=== PATIENT | female | born 1965 | race Caucasian/White ===

== ENCOUNTER 2016-10-22 15:40 | Emergency (ER) | payer OTHER, MEDICAID ==
[~2016-10-22] VITALS: Ht 157.5 cm; Wt 92.1 kg
[~2016-10-22 15:40] MED LIST: /ESCI20TA PO; DOXY100T OR; FLUC10TA OR; GLUC500T PO; NEXI20CA PO; PERC5TAB8 OR; SIMV20TA2 PO
[2016-10-22 15:41] VITALS: BP 161/80
[2016-10-22] MEDS ORDERED: ASPI81TA85 PO (15:50)
== END 2016-10-22 16:35 | disposition home or self-care (01) ==
LOC: M ED 16:28
DX: S46.912A Strain of unspecified muscle, fascia and tendon at shoulder and upper arm level, left arm, initial encounter (principal); V49.40XA Driver injured in collision with unspecified motor vehicles in traffic accident, initial encounter; Y92.410 Unspecified street and highway as the place of occurrence of the external cause; Y93.89 Activity, other specified; Y99.9 Unspecified external cause status

== ENCOUNTER → 2016-12-21 | Outpatient (CLI) | payer OTHER ==
[~2016-12-21] MED LIST changes: +ASPI81TA85 PO
--- NOTE | 2016-12-21 14:18 | REP ---
Clinical: Right lower quadrant pain . Technique: Transabdominal pelvic ultrasound followed by transvaginal examination for better evaluation of the endometrium and adnexa with color Doppler evaluation of the ovaries. Findings: Bladder is unremarkable and measures 10.8 x 6.4 x 8.6 cm . The patient is status post hysterectomy. No pelvic fluid or mass lesion identified. Bilateral ovaries are normal in appearance and vascularity without evidence for torsion. Right ovary measures 4.7 x 3.4 x 3.7 cm with 4 cm cyst and 1.5 cm paraovarian cyst; R I = 0.78 . Left ovary measures 2.5 x 1.6 x 1.7 cm; venous flow is detected. Impression: 1. Status post hysterectomy without fluid or pelvic mass. 2. 4 cm right ovarian cyst may be related to patient's symptoms. Consider follow-up examination in 4-6 weeks to evaluate for resolution.
== END ==
LOC: M WHC 13:13
PROVIDERS: ATTEND Nurse Practitioner Family
DX: R10.31 Right lower quadrant pain (principal); N83.291 Other ovarian cyst, right side

== ENCOUNTER → 2017-01-20 | Outpatient (CLI) | payer OTHER ==
--- NOTE | 2017-01-20 15:25 | REP ---
NON-OB PELVIC ULTRASOUND: HISTORY: Ovarian cyst. COMPARISON: 12/21/2016. The patient is status post hysterectomy. The right ovary measures 7.1 x 3.5 x 3.8 cm. An ovarian cyst is present. The cyst measures 3.9 x 2.7 x 3.2 cm. A right paraovarian cyst is present. This measures 1.2 x 0.7 x 1.0 cm. The left ovary measures 3 x 2.2 x 2.1 cm. There is no fluid in the cul-de-sac. IMPRESSION: 1. Right ovarian cyst unchanged in size compared to the previous study. 2. Right paraovarian cyst slightly decreased in size compared to the previous study. 3. The patient is status post hysterectomy. Signed by Jan Cherry MD 01/20/2017 03:29 P
== END ==
LOC: M RAD 13:41
PROVIDERS: ATTEND Obstetrics & Gynecology
DX: N83.201 Unspecified ovarian cyst, right side (principal)

== ENCOUNTER → 2017-03-03 | Day surgery (SDC) | payer OTHER ==
--- NOTE | 2017-02-23 11:38 | CR ---
DATE OF CONSULTATION: 02/22/2017 REQUESTING PHYSICIAN: Dr. Cai for bilateral salpingo-oophorectomy on 03/03/[address] [facility]. Dear Dr. Cai, Thank you for asking me to see Ms. Galina Simms in consultation prior to her bilateral salpingo-oophorectomy. As you know, Ms. Simms is a 51-year-old female with a past medical history of partial hysterectomy, type 2 diabetes, hyperlipidemia, presenting for preop optimization. Ms. Simms reports that she initially presented with sharp pain in her right side and ultimately found to have ovarian cyst. Pain has been so uncomfortable that it has been difficult for her to be active. She complains of associated nausea and anorexia. She was prescribed Zofran recently but finds Dramamine works better. She has omeprazole but takes it only sporadically. Patient has history of migraines, they are rare. She uses Imitrex for this. Patient has history of hypertension. She is on lisinopril. Denies any chest pain, palpitations, syncope or presyncope. The patient does have tramadol for pain. She is taking this rarely, at most several times a week. The patient is active but not exercising. She denies chest pain, palpitations, syncope, presyncope. The patient reports she has a small right brain aneurysm. She follows with neurology. This was found incidentally during evaluation for migraines. 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 The patient denies any new neurologic symptoms. The patient does suffer from depression, anxiety. She is on Lexapro and feels she is stable. She is compliant with medicines. PAST MEDICAL HISTORY: 1. 01/11/2005 partial hysterectomy and appendectomy. 2. Lysis of adhesions. 3. Hirsutism. 4. 1, para 1. 5. Hyperlipidemia. 6. Depression. 7. Diabetes type 2 in 2009. 8. Gastroesophageal reflux disease. 9. Fractured wrist 08/20/2009. 10. Vitamin D deficiency. 11. Ovarian cyst per ultrasound 01/20/2017. Right ovarian cyst is 1.2 x 0.7 x 1 cm, left ovarian cyst is 3 x 2.2 x 2.1 cm. 12. Right sided ICA 1 mm aneurysm July 2015 angiogram. MEDICATIONS: The patient's medications she is on: - baby aspirin daily - atorvastatin 80 mg daily - Dramamine as needed for nausea - Drisdol 50,000 units weekly - Imitrex as needed for migraine - Lexapro 20 mg daily - Lisinopril 5 mg daily - multivitamin daily - omeprazole 40 mg as needed - tramadol 50 mg as needed for pain - vitamin D 1000 International Units daily ALLERGIES: BACTRIM causes GI upset, DIFLUCAN causes nausea. FAMILY HISTORY: Mother in her 70s with hypertension, lung cancer, breast cancer, colon cancer. Dad in his 70s from heart disease. Two sisters with diabetes, asthma, strokes. SOCIAL HISTORY: . 25-year-old son. Never smoked. Denies alcohol. PHYSICAL EXAMINATION: Obese female in no acute distress. VITAL SIGNS: Weight 208 with a Body Mass Index (BMI) of 37, oxygen saturation is 96%, blood pressure 136/84 with a heart rate of 76. HEENT: Head is normocephalic. Neck is supple. Pupils equal, reactive to light. Extraocular movements intact. Conjunctivae not injected. Sclerae anicteric. Vision grossly normal. Tympanic membranes, external auditory canals are normal. Tongue is midline. Posterior pharynx without inflammation. Neck: Supple. No thyromegaly, jugular venous distention (JVD), carotid bruits. She does have hirsutism on her chin and neck. RESPIRATORY: Clear to auscultation, resonant to percussion. CARDIOVASCULAR: Soft systolic murmur. ABDOMEN: Soft, nontender, obese. No hepatosplenomegaly. EXTREMITIES: No cyanosis, clubbing or edema. DERMATOLOGIC: No rashes or bruises. NEUROLOGIC: Alert and oriented. Cranial nerves II-XII are intact. LABORATORY DATA: 02/22/2017: Normal CBC. A1/c was 5.9. Med profile is normal. Magnesium normal. TSH is normal. EKG on 02/22/2017: Normal sinus rhythm, rate of 77, axis of 3 degrees, normal TN, QRS, QTC interval. Only subtle nonspecific ST-T wave changes with no significant change from previous EKG in 2012. IMPRESSION: Ms. Galina Simms is a 51-year-old female with cardiovascular risk factors positive for hypertension, hyperlipidemia, type 2 diabetes, has no signs or symptoms indicative of cardiovascular ischemia and is felt to be at low risk for cardiovascular complications, which can be further minimized by the followin. Diabetes type 2. With her anorexia and nausea, I will discontinue metformin at this point and bring her back in 1 month to reconsider reinitiation and treatment. 2. Hyperlipidemia. She will take atorvastatin as usual the evening prior to surgery. Aspirin will be on hold 1 week prior to surgery. 3. Gastroesophageal reflux disease. I have recommended daily proton pump inhibitor until surgery. Hopefully, nausea and anorexia will improve, and we can wean her back off. 4. Migraines, rare. Continue as needed Imitrex. 5. Vitamin D deficiency. Hold the morning of surgery. 6. Depression. Continue Lexapro, including morning of surgery. 7. Hypertension. Blood pressure is adequately controlled. Hold lisinopril the morning of surgery. 8. Cerebral aneurysm. Continue to monitor with neurology and vascular surgeon. 9. Soft systolic murmur, no need for further evaluation or treatment Thank you very much for this consultation. Please call with questions or concerns.
[~2017-03-03] VITALS: Ht 157.5 cm; Wt 93.0 kg
[~2017-03-03] MED LIST changes: +ATOR80TA59 PO; +BUPIVACAINE HCL 0.25% 30 ML VIAL As Ordered ONE; +COLA100C5 PO; +ESTR3TA PO; +GLYCOPYRROLATE INJ 0.2 MG/ML 2 ML VIAL As Ordered ONE; +HYDROmorphone HCL 2 MG/ML 1ML VIAL (J1170) As Ordered ONE; +IBUP-1022 PO; +KETOROLAC 60 MG/2 ML VIAL (J1885) As Ordered ONE; +LEXA1TAB2 PO; +LIDOCAINE 1% MDV 20ML VIAL SC ONE; +LIDOCAINE 2% INJ 100 MG/5 ML SDV (FOR ANES.) As Ordered ONE; +LISI-542 PO; +LR 1,000 ML IV ONE; +LR 1,000 ML IV SCH; +METHYLENE BLUE 0.5% (5MG/ML) 10 ML AMP (PROVAYBLUE)(Q9968 PER 1MG) As Ordered ONE; +MIDAZOLAM INJ 2 MG/2 ML VIAL (J2250) As Ordered ONE; +NEOSTIGMINE 1MG/ML 5 ML SYRINGE (J2710) As Ordered ONE; +NORCOTAB PO; +ONDANSETRON 4MG/2ML VIAL (J2405) As Ordered ONE; +ONDANSETRON 4MG/2ML VIAL (J2405) IV PRN; +OXYC1TAB23 PO; +PERCOCET 5MG/325MG TAB PO PRN; +PROPOFOL 200 MG/20 ML VIAL As Ordered ONE; +ROCURONIUM BROMIDE 50 MG/5 ML VIAL/SYRINGE As Ordered ONE; +SUMA50TA2 PO; +TRAM50TA2 PO; +VITA200016 PO; +WOMECAP2 PO; +ZOFR4TAB3 PO; +dexameTHASONE 4 MG/ML 1ML VIAL (J1100) As Ordered ONE; +ePHEDrine SULFATE 25 MG/5 ML(5MG/ML) SYRINGE As Ordered ONE; +fentaNYL 100 MCG/2 ML INJECTION (J3010) IV PRN; +fentaNYL 250 MCG/5 ML INJECTION (J3010) As Ordered ONE
[2017-03-03 07:28] LABS: MEAN CORPUSCULAR HEMOGLOBIN 30.6 pg (27.0-33.0); MEAN CORPUSCULAR HGB CONC 33.9 g/dl (32.0-36.5); MEAN CORPUSCULAR VOLUME 90.1 fl (80.0-96.0); RED CELL DISTRIBUTION WIDTH 13.6 % (11.5-14.5)
[2017-03-03 12:25] VITALS: BP 142/81
--- NOTE | 2017-03-05 07:42 | RO ---
DATE OF PROCEDURE: 03/03/2017 PREOPERATIVE DIAGNOSIS: 1. Chronic pelvic pain. POSTOPERATIVE DIAGNOSES: 1. Chronic pelvic pain. 2. Pelvic adhesive disease. PROCEDURES PERFORMED: 1. Laparoscopic bilateral salpingo-oophorectomy. 2. Laparoscopic adhesiolysis. 3. Cystoscopy. SURGEON: Waylon Cai DO WAITER/WAITRESS CABIN CLASS: Jan Sanchez MD ANESTHESIA: General endotracheal. SPECIMENS TO PATHOLOGY: The right and left ovaries with fallopian tubes. ESTIMATED BLOOD LOSS: 10 mL. FLUIDS REPLACED: 1500 mL lactated Ringer's. DRAINS: 500 mL of urine output through the Alejandro catheter. COMPLICATIONS: None. PREOPERATIVE ANTIBIOTICS: None indicated. FINDINGS: 1. Severe pelvic adhesive disease. Omental adhesions to the anterior abdominal wall. Normal ovaries bilaterally. Normal fallopian tubes bilaterally with the exception of the ovaries and fallopian tubes both being densely adherent to the pelvic sidewall and to the large intestine. CYSTOSCOPY FINDINGS: No bladder injury. Evidence of bilateral ureteral orifice jets after IV infusion of methylene blue. INDICATION: Patient is a 51-year-old 1, para 1 with a history of longstanding chronic pelvic pain. She is status post hysterectomy and her pain persists despite her hysterectomy. She was adamant about proceeding with a bilateral salpingo-oophorectomy for the hopeful treatment of her chronic pelvic pain. She was counseled and consented on the risks, benefits, indications, and alternatives to the procedure. I informed the patient that this may not cure her chronic pelvic pain, but she still desired to proceed with this surgical plan. The implications of bilateral salpingo-oophorectomy/iatrogenic menopause were reviewed with the patient. DESCRIPTION OF PROCEDURE: After the patient was counseled and consented on the risks, benefits, indications, and alternatives to the procedure, informed consent was obtained. She was taken to the operating room with an IV running and placed on the operating table in the dorsal supine position. General anesthesia was administered and the airway was secured without any difficulty. She was then placed in a low lithotomy position. She was prepared and draped in the normal sterile fashion. A time out was performed per protocol. A Alejandro catheter was placed under sterile conditions. A sponge stick was placed into the vagina for potential manipulation of the lower pelvic organs. A glove switch was performed and attention was turned to the abdomen. 0.25% Marcaine was injected into the umbilicus. An 11 mm umbilical incision was made with the 11 blade. Through this incision a Veress needle was placed into the intraperitoneal cavity. Intraperitoneal placement was confirmed with ease of flow of normal saline, negative return on aspiration, and a positive drop test. Opening pressure was 7 mmHg. The abdomen was insufflated with 2 liters of gas. The Veress needle was removed. A size 11 XCEL laparoscopic trocar was placed under direct visualization into the intraperitoneal cavity. No incidental injury was noted. The patient was then placed in steep Trendelenburg, and inspection of the abdomen and pelvis was performed with the findings noted above. Two additional laparoscopic port sites were placed in the lower abdomen via 5 mm skin incisions on both the right and left side. This was done under direct laparoscopic visualization without any difficulty. Given the level of the adhesive disease, a decision was first made to perform adhesiolysis. This was done with the monopolar Endo Samson, blunt dissection and the use of the LigaSure device. The pelvic sidewall adhesions and bowel adhesions to the right and left adnexa and the omental adhesions to the anterior abdominal wall were all reduced without any difficulty or incident injury. Once the right adnexa was freed from adhesive disease, the right fallopian tube and ovary were elevated. The right IP ligament was easily delineated and noted to be well way from the right ureter. In sequential fashion, the right IP ligament was clamped, coagulated and transected with a LigaSure device until it was amputated. These specimens were then placed in the anterior cul-de-sac. Attention was turned to the left adnexa and after extensive adhesiolysis the left ovary and fallopian tube were noted to be freed and clear of both the large intestine and the left ureter. The left fallopian tube and ovary were grasped and elevated, the left IP ligament was easily delineated and in sequential fashion the left IP ligament was clamped, coagulated and transected with the LigaSure device. This specimen was also placed into the anterior cul-de-sac. The specimens were placed in an EndoCatch bag. Two separate EndoCatch bags were used. The EndoCatch bag removals were performed in typical fashion without any difficulty. Each specimen was removed in its entirety. They were sent separately as right and left fallopian tube with ovary. The surgical sites were noted to be hemostatic after irrigation. The gas was released from the abdomen. The laparoscopic cannulas were removed in typical fashion. After removal of laparoscopic cannulas, the fascia at the umbilical incision was closed with #0 Vicryl with a figure-of-8 stitch. The skin incisions were closed with #4-0 Monocryl in subcuticular fashion and reinforced with Dermabond. The Alejandro catheter was removed. A 30 degree cystoscope was placed into the bladder. No bladder injury was noted. Bilateral UO efflux was noted after IV infusion of methylene blue, thus indicating no evidence of urological injury. Sponge, lap, needle and instrument counts were correct. The patient was transferred to the postanesthesia care unit (PACU) in good and stable condition. She tolerated the procedure very well. DEBRA
== END | disposition home or self-care (01) ==
LOC: M SDC 06:40
PROVIDERS: ATTEND Obstetrics & Gynecology
DX: R10.2 Pelvic and perineal pain (principal); N73.6 Female pelvic peritoneal adhesions (postinfective); E78.4 Other hyperlipidemia; E11.9 Type 2 diabetes mellitus without complications; G43.909 Migraine, unspecified, not intractable, without status migrainosus; K21.9 Gastro-esophageal reflux disease without esophagitis; I10 Essential (primary) hypertension; F32.9 Major depressive disorder, single episode, unspecified; F41.9 Anxiety disorder, unspecified; E55.9 Vitamin D deficiency, unspecified; Z79.82 Long term (current) use of aspirin; Z79.899 Other long term (current) drug therapy; Z88.2 Allergy status to sulfonamides; I67.1 Cerebral aneurysm, nonruptured

== ENCOUNTER → 2017-03-22 | Outpatient (CLI) | payer OTHER ==
[~2017-03-22] MED LIST changes: -BUPIVACAINE HCL 0.25% 30 ML VIAL As Ordered ONE; -GLYCOPYRROLATE INJ 0.2 MG/ML 2 ML VIAL As Ordered ONE; -HYDROmorphone HCL 2 MG/ML 1ML VIAL (J1170) As Ordered ONE; -KETOROLAC 60 MG/2 ML VIAL (J1885) As Ordered ONE; -LIDOCAINE 1% MDV 20ML VIAL SC ONE; -LIDOCAINE 2% INJ 100 MG/5 ML SDV (FOR ANES.) As Ordered ONE; -LR 1,000 ML IV ONE; -LR 1,000 ML IV SCH; -METHYLENE BLUE 0.5% (5MG/ML) 10 ML AMP (PROVAYBLUE)(Q9968 PER 1MG) As Ordered ONE; -MIDAZOLAM INJ 2 MG/2 ML VIAL (J2250) As Ordered ONE; -NEOSTIGMINE 1MG/ML 5 ML SYRINGE (J2710) As Ordered ONE; -ONDANSETRON 4MG/2ML VIAL (J2405) As Ordered ONE; -ONDANSETRON 4MG/2ML VIAL (J2405) IV PRN; -PERCOCET 5MG/325MG TAB PO PRN; -PROPOFOL 200 MG/20 ML VIAL As Ordered ONE; -ROCURONIUM BROMIDE 50 MG/5 ML VIAL/SYRINGE As Ordered ONE; -dexameTHASONE 4 MG/ML 1ML VIAL (J1100) As Ordered ONE; -ePHEDrine SULFATE 25 MG/5 ML(5MG/ML) SYRINGE As Ordered ONE; -fentaNYL 100 MCG/2 ML INJECTION (J3010) IV PRN; -fentaNYL 250 MCG/5 ML INJECTION (J3010) As Ordered ONE
--- NOTE | 2017-03-22 13:16 | REP ---
LEFT CALCANEUS: Two views of left calcaneus performed. There is no fracture or dislocation. There is mild posterior and inferior calcaneal spurring. IMPRESSION: Mild calcaneal spurring. Signed by Triston Hu MD 03/22/2017 05:11 P
== END ==
LOC: M RAD 12:43
PROVIDERS: ATTEND Physician Assistant Medical
DX: M77.32 Calcaneal spur, left foot (principal)

== ENCOUNTER 2017-04-14 12:53 | Emergency (ER) | payer OTHER ==
[~2017-04-14] VITALS: Ht 157.5 cm; Wt 93.2 kg
[~2017-04-14 12:53] MED LIST changes: -ATOR80TA59 PO; -ESTR3TA PO; -LEXA1TAB2 PO; -LISI-542 PO; -NORCOTAB PO
[2017-04-14] MEDS ORDERED: ESTR3TA PO (13:08)
[2017-04-14] MEDS ORDERED: LEXA1TAB2 PO (13:08)
[2017-04-14] MEDS ORDERED: LISI-542 PO (13:08)
[2017-04-14] MEDS ORDERED: ATOR80TA59 PO (13:08)
--- NOTE | 2017-04-14 15:00 | REP ---
Clinical: Trauma. Technique: AP, lateral, bilateral oblique views left hand . Findings: The osseous structures and joint spaces are intact and normal. There is no evidence for acute fracture or dislocation. Surrounding soft tissues are unremarkable. No subcutaneous emphysema or radiodense foreign body. Impression: No acute fracture or dislocation. Signed by Vinny Santoro MD 04/14/2017 02:53 P
[2017-04-14 15:02] VITALS: BP 158/82
[2017-04-14] MEDS ORDERED: NORCOTAB PO (15:23)
[2017-04-14] MEDS ORDERED: NORCO, ANEXSIA 5/325MG TABLET (HYDROcodone/ACETAMINOPHEN) PO ONE (15:30)
== END 2017-04-14 15:35 | disposition home or self-care (01) ==
LOC: M ED 12:53
DX: S60.512A Abrasion of left hand, initial encounter (principal); S60.222A Contusion of left hand, initial encounter; X58.XXXA Exposure to other specified factors, initial encounter; Y92.019 Unspecified place in single-family (private) house as the place of occurrence of the external cause; Y93.89 Activity, other specified; Y99.8 Other external cause status; E11.9 Type 2 diabetes mellitus without complications; F33.9 Major depressive disorder, recurrent, unspecified; Z79.82 Long term (current) use of aspirin; Z79.899 Other long term (current) drug therapy; Z88.8 Allergy status to other drugs, medicaments and biological substances; Z88.2 Allergy status to sulfonamides; Z86.79 Personal history of other diseases of the circulatory system

== ENCOUNTER 2017-05-01 17:44 | Emergency (ER) | payer OTHER ==
[~2017-05-01] VITALS: Ht 157.5 cm; Wt 94.5 kg
[~2017-05-01 17:44] MED LIST changes: +ATOR80TA59 PO; +ESTR3TA PO; +LEXA1TAB2 PO; +LISI-542 PO; +NORCOTAB PO
--- NOTE | 2017-05-01 18:19 | ECGEPIP ---
Stationary ECG Study [facility] - ED Test Date: 2017-05-01 Pat Name: TAN ALEMAN Department: Room: - Gender: F Nursing Informatics Specialist: alysia : 1965 Requested By: Celia Lee Order Number: [id number] Reading MD: Osvaldo Le Measurements Intervals [place] Rate: 81 P: 50 [place]: 177 QRS: -1 QRSD: 90 T: 11 QT: 381 QTc: 444 Interpretive Statements SINUS RHYTHM MINIMAL VOLTAGE CRITERIA FOR LVH, CONSIDER NORMAL VARIANT SIMILAR TO 03/23/15 Electronically Signed On 05-01-2017 18:18:43 EDT by Osvaldo Le
[2017-05-01] MEDS ORDERED: ASPIRIN 81 MG CHEW TABLET PO ONE (20:00)
--- NOTE | 2017-05-01 20:40 | REPUSA ---
CT of the head Clinical history: neuropathy. Comparison: 06/06/2010. Technique: Multiple axial CT images were obtained through the head without administration of contrast . Findings: The ventricles and sulci are symmetric bilaterally. There is no evidence of acute hemorrhag e or infarct. There is no midline shift, mass effect, or extra-axial fluid collection. The osseous st ructures are unremarkable. The visualized paranasal sinuses and mastoid air cells are clear. Impression: Negative study.
[2017-05-01 20:52] LABS: BASO % 0.3 % (0.0-1.0); EOS # 0.2 10^3/uL (0.0-0.50); EOS % 1.7 % (0.0-3.0); IMMATURE GRANULOCYTE % 0.4 % (0-0); LYMPH # 2.4 10^3/uL (1.5-4.5); LYMPH % 24.4 % (24.0-44.0); MEAN CORPUSCULAR HEMOGLOBIN 29.5 pg (27.0-33.0); MEAN CORPUSCULAR VOLUME 89.5 fl (80.0-96.0); MONO # 0.6 10^3/uL (0.0-0.8); MONO % 6.6 % (0.0-5.0); NEUTROPHILS # 6.4 10^3/uL (1.8-7.7); NEUTROPHILS % 66.6 % (36.0-66.0); PLATELET COUNT, AUTOMATED 409 10^3/uL (150-450); RED CELL DISTRIBUTION WIDTH 13.4 % (11.5-14.5); WHITE BLOOD COUNT 9.7 10^3/uL (4.0-10.0)
[2017-05-01 21:01] LABS: ALT/SGPT 25 U/L (12-78); ANION GAP 9 MEQ/L (8-16); AST/SGOT 9 U/L (15-37); BLOOD UREA NITROGEN 22 MG/DL (7-18); CALCIUM LEVEL 8.5 MG/DL (8.5-10.1); CARBON DIOXIDE LEVEL 26 MEQ/L (21-32); CHLORIDE LEVEL 108 MEQ/L (98-107); CREATININE FOR GFR 0.73 MG/DL (0.55-1.02); GLOMERULAR FILTRATION RATE > 60.0 (>58); GLUCOSE, FASTING 89 MG/DL (70-105); POTASSIUM SERUM 3.9 MEQ/L (3.5-5.1); SODIUM LEVEL 143 MEQ/L (136-145)
[2017-05-01 21:02] LABS: ALBUMIN 3.4 GM/DL (3.2-5.2); ALKALINE PHOSPHATASE 84 U/L (45-117); BILIRUBIN,DIRECT < 0.1 MG/DL (0.0-0.2); BILIRUBIN,TOTAL 0.2 MG/DL (0.2-1.0)
[2017-05-01 21:08] LABS: INR 0.9
[2017-05-01 21:09] LABS: TOTAL PROTEIN 6.8 GM/DL (6.4-8.2)
[2017-05-01 21:59] VITALS: BP 147/86
--- NOTE | 2017-05-02 01:03 | REP ---
Clinical: Chest pain . Comparison: 08/10/2014 . Technique: PA and lateral. Findings: The mediastinum and cardiac silhouette are normal. The lung charles are clear and without acute consolidation, effusion, or pneumothorax. The skeletal structures are intact and normal. Impression: 1. No acute cardiopulmonary process. Signed by Vinny Santoro MD 05/02/2017 12:54 A
== END 2017-05-01 22:15 | disposition home or self-care (01) ==
LOC: M ED 17:44
DX: G62.9 Polyneuropathy, unspecified (principal); E11.9 Type 2 diabetes mellitus without complications; Z82.49 Family history of ischemic heart disease and other diseases of the circulatory system; Z79.82 Long term (current) use of aspirin; Z79.899 Other long term (current) drug therapy; Z88.2 Allergy status to sulfonamides; Z88.8 Allergy status to other drugs, medicaments and biological substances

== ENCOUNTER 2017-05-16 15:18 | Emergency (ER) | payer OTHER ==
[~2017-05-16] VITALS: Ht 157.5 cm; Wt 92.3 kg
[2017-05-16] MEDS ORDERED: NS 1,000 ML IV SCH (15:42)
[2017-05-16] MEDS ORDERED: KETOROLAC 30 MG/ML VIAL (J1885) IV ONE (15:45)
[2017-05-16 16:37] LABS: BASO % 0.3 % (0.0-1.0); EOS # 0.2 10^3/uL (0.0-0.50); EOS % 1.7 % (0.0-3.0); IMMATURE GRANULOCYTE % 0.2 % (0-0); LYMPH # 2.2 10^3/uL (1.5-4.5); LYMPH % 23.6 % (24.0-44.0); MEAN CORPUSCULAR HEMOGLOBIN 29.4 pg (27.0-33.0); MEAN CORPUSCULAR HGB CONC 33.5 g/dl (32.0-36.5); MEAN CORPUSCULAR VOLUME 87.8 fl (80.0-96.0); MONO # 0.5 10^3/uL (0.0-0.8); NEUTROPHILS # 6.4 10^3/uL (1.8-7.7); NEUTROPHILS % 69.2 % (36.0-66.0); PLATELET COUNT, AUTOMATED 332 10^3/uL (150-450); RED CELL DISTRIBUTION WIDTH 13.2 % (11.5-14.5); WHITE BLOOD COUNT 9.3 10^3/uL (4.0-10.0)
--- NOTE | 2017-05-16 16:41 | REP ---
Acute abdominal series three views including PA chest and supine upright abdomen: PA chest: Comparisons 05/01/2017. The lung charles are clear. Cardiac size is normal. The [place], mediastinum, and bony thorax are unremarkable. There is no free subdiaphragmatic air. Impression: Negative PA chest. There is no interval change. Abdomen, supine upright views: The bowel gas pattern is normal. There are surgical clips in the pelvis. There are no calcifications of the skeletal structures and soft tissues are otherwise unremarkable. Impression: Normal bowel gas pattern. Signed by Triston Ley MD 05/16/2017 04:33 P
[2017-05-16 17:05] LABS: ALBUMIN 3.7 GM/DL (3.2-5.2); ALBUMIN/GLOBULIN RATIO 1.03 (1.00-1.93); ALKALINE PHOSPHATASE 90 U/L (45-117); ALT/SGPT 30 U/L (12-78); ANION GAP 5 MEQ/L (8-16); AST/SGOT 13 U/L (15-37); BILIRUBIN,DIRECT < 0.1 MG/DL (0.0-0.2); BILIRUBIN,TOTAL 0.2 MG/DL (0.2-1.0); BLOOD UREA NITROGEN 21 MG/DL (7-18); CALCIUM LEVEL 8.9 MG/DL (8.5-10.1); CARBON DIOXIDE LEVEL 31 MEQ/L (21-32); CHLORIDE LEVEL 106 MEQ/L (98-107); CREATININE FOR GFR 0.92 MG/DL (0.55-1.02); GLOMERULAR FILTRATION RATE > 60.0 (>58); GLUCOSE, FASTING 109 MG/DL (70-105); POTASSIUM SERUM 3.5 MEQ/L (3.5-5.1); SODIUM LEVEL 142 MEQ/L (136-145); TOTAL PROTEIN 7.3 GM/DL (6.4-8.2)
[2017-05-16] MEDS ORDERED: GASTROGRAFIN SOLUTION 30ML (Q9963) PO ONE ×2 (17:30→18:00)
[2017-05-16] MEDS ORDERED: ISOVUE-370 76% 100ML VIAL (Q9967) As Ordered ONE (19:06)
--- NOTE | 2017-05-16 19:40 | REPUSA ---
CT of the abdomen and pelvis with contrast Clinical statement: Pain. Technique: Multiple axial CT images were obtained from the base of the lungs through the floor of the pelvis utilizing 5 mm axial slices after administration of oral and nonionic intravenous contrast. C oronal and sagittal reconstructions were also obtained. Comparison: 01/05/2014. Findings: Chest: The visualized lung bases are clear. Abdomen: The spleen, pancreas, kidneys, gallbladder, and adrenal glands are unremarkable. There is di ffuse low attenuation within the hepatic parenchyma. The aorta is within normal limits. There is no e vidence of abdominal lymphadenopathy or ascites. Pelvis: The bowel is unremarkable, with no obstructive or inflammatory changes. The urinary bladder i s within normal limits. The other pelvic structures appear grossly intact. There is no evidence of pe lvic lymphadenopathy or ascites. Bones: There are no suspicious osseous abnormalities seen. Impression: 1. No obstructive or inflammatory bowel changes. 2. Fatty infiltration of the liver.
[2017-05-16 21:14] VITALS: BP 146/86
== END 2017-05-16 21:15 | disposition home or self-care (01) ==
LOC: M ED 15:18
DX: R10.9 Unspecified abdominal pain (principal); E11.9 Type 2 diabetes mellitus without complications; I10 Essential (primary) hypertension; G43.909 Migraine, unspecified, not intractable, without status migrainosus; K21.9 Gastro-esophageal reflux disease without esophagitis; E28.2 Polycystic ovarian syndrome; F32.9 Major depressive disorder, single episode, unspecified; K76.0 Fatty (change of) liver, not elsewhere classified; Z79.82 Long term (current) use of aspirin; Z79.899 Other long term (current) drug therapy; Z88.2 Allergy status to sulfonamides; Z88.8 Allergy status to other drugs, medicaments and biological substances
CPT/HCPCS: 74022; 74177; 80048; 80076; 83690; 85025; 93041; 96374; 99284; J1885; Q9963; Q9967

== ENCOUNTER 2017-06-23 14:23 | Emergency (ER) | payer MEDICAID, OTHER ==
[~2017-06-23] VITALS: Ht 157.5 cm; Wt 93.2 kg
[2017-06-23] MEDS ORDERED: BLAC40CA2 PO (14:42)
--- NOTE | 2017-06-23 15:17 | REP ---
Clinical: Pain . Technique: Internal rotation, external rotation, and Y view left shoulder . Findings: No acute fracture or dislocation. The acromioclavicular and glenohumeral joints are intact. No periarticular calcifications or degenerative changes are appreciated. Sub acromial space is normal. Surrounding soft tissues are unremarkable. Impression: Normal left shoulder radiographs. Signed by Vinny Santoro MD 06/23/2017 03:09 P
[2017-06-23] MEDS ORDERED: NAPR500T PO (16:25)
[2017-06-23 16:49] VITALS: BP 159/87
== END 2017-06-23 16:47 | disposition home or self-care (01) ==
LOC: M ED 14:23
DX: S46.211A Strain of muscle, fascia and tendon of other parts of biceps, right arm, initial encounter (principal); X50.0XXA Overexertion from strenuous movement or load, initial encounter; Y92.9 Unspecified place or not applicable; Y93.89 Activity, other specified; Y99.0 Civilian activity done for income or pay; E11.9 Type 2 diabetes mellitus without complications; I10 Essential (primary) hypertension; G43.909 Migraine, unspecified, not intractable, without status migrainosus; D32.9 Benign neoplasm of meninges, unspecified; D41.9 Neoplasm of uncertain behavior of unspecified urinary organ; F17.200 Nicotine dependence, unspecified, uncomplicated; Z79.82 Long term (current) use of aspirin; Z79.899 Other long term (current) drug therapy; Z88.2 Allergy status to sulfonamides; Z88.1 Allergy status to other antibiotic agents; Z88.8 Allergy status to other drugs, medicaments and biological substances

== ENCOUNTER 2017-07-23 13:14 | Emergency (ER) | payer MEDICAID, OTHER ==
[~2017-07-23] VITALS: Ht 157.5 cm; Wt 94.5 kg
[~2017-07-23 13:14] MED LIST changes: +BLAC40CA2 PO; +NAPR500T PO
--- NOTE | 2017-07-23 15:04 | REP ---
Right ankle four views : There is no fracture or dislocation. Mineralization and joint spaces are normal. There are no calcifications or foreign bodies. Impression: Negative right ankle . Signed by Triston Ley MD 07/23/2017 02:55 P
--- NOTE | 2017-07-23 15:05 | REP ---
Right foot four views : There is no fracture or dislocation. Mineralization and joint spaces are normal. There are no calcifications or foreign bodies. Impression: Negative right foot . Signed by Triston Ley MD 07/23/2017 02:56 P
[2017-07-23 15:35] VITALS: BP 162/78
== END 2017-07-23 15:38 | disposition home or self-care (01) ==
LOC: M ED 13:14
DX: S93.401A Sprain of unspecified ligament of right ankle, initial encounter (principal); S90.31XA Contusion of right foot, initial encounter; X50.1XXA Overexertion from prolonged static or awkward postures, initial encounter; Y92.099 Unspecified place in other non-institutional residence as the place of occurrence of the external cause; Y93.89 Activity, other specified; Y99.9 Unspecified external cause status; Z79.82 Long term (current) use of aspirin; Z79.899 Other long term (current) drug therapy; Z88.2 Allergy status to sulfonamides; Z88.8 Allergy status to other drugs, medicaments and biological substances; Z88.1 Allergy status to other antibiotic agents

== ENCOUNTER → 2017-08-02 | Outpatient (CLI) | payer OTHER | LOC: M WHC 10:29 | DX: Z12.31 Encounter for screening mammogram for malignant neoplasm of breast (principal); Z80.3 Family history of malignant neoplasm of breast | CPT/HCPCS: G0202 ==

== ENCOUNTER → 2017-08-30 | Outpatient (REF) | payer OTHER ==
[2017-08-30 20:39] LABS: APPEARANCE, URINE CLOUDY (CLEAR); BACTERIA, URINE AUTO NEGATIVE (NEGATIVE); BILIRUBIN, URINE AUTO NEGATIVE (NEGATIVE); BLOOD, URINE BLOOD NEGATIVE (NEGATIVE); CALCIUM OXALATE CRYSTALS LARGE; COLOR, URINE YELLOW (YELLOW); GLUCOSE, URINE (UA) AUTO NEGATIVE (NEGATIVE); KETONE, URINE AUTO TRACE mg/dL (NEGATIVE); LEUKOCYTE ESTERASE, URINE AUTO TRACE (NEGATIVE); MUCUS, URINE SMALL (NEGATIVE); NITRITE, URINE AUTO NEGATIVE (NEGATIVE); PROTEIN, URINE AUTO NEGATIVE (NEGATIVE); RBC, URINE AUTO 2 /HPF (0-3); SPECIFIC GRAVITY URINE AUTO 1.025 (1.002-1.035); SQUAMOUS EPITHELIAL CELL UR AU 5 /HPF (0-6); UROBILINOGEN, URINE AUTO 0.2 mg/dL (0.0-2.0); WBC, URINE AUTO 1 /HPF (0-3)
[2017-08-31 08:30] LABS: CHLAMYDIA DNA AMPLIFICATION NEGATIVE (NEGATIVE); GC DNA AMPLIFICATION NEGATIVE (NEGATIVE)
== END ==
LOC: M LAB REF 17:18
DX: R39.9 Unspecified symptoms and signs involving the genitourinary system (principal)

== ENCOUNTER → 2017-08-31 | Outpatient (CLI) | payer OTHER ==
[~2017-08-31] MED LIST changes: -/ESCI20TA PO; -ASPI81TA85 PO; -ATOR80TA59 PO; -BLAC40CA2 PO; -COLA100C5 PO; +CONRAY-43 43% 50ML VIAL (Q9960) As Ordered; -DOXY100T OR; -ESTR3TA PO; -FLUC10TA OR; -GLUC500T PO; -IBUP-1022 PO; -LEXA1TAB2 PO; -LISI-542 PO; -NAPR500T PO; -NEXI20CA PO; -NORCOTAB PO; -OXYC1TAB23 PO; -PERC5TAB8 OR; +PROHANCE 279.3MG/ML 5ML VIAL (A9576) As Ordered; -SIMV20TA2 PO; -SUMA50TA2 PO; -TRAM50TA2 PO; -VITA200016 PO; -WOMECAP2 PO; -ZOFR4TAB3 PO
== END ==
LOC: M RADPRO 08:06
DX: M24.411 Recurrent dislocation, right shoulder (principal); M75.91 Shoulder lesion, unspecified, right shoulder; M65.811 Other synovitis and tenosynovitis, right shoulder; M19.011 Primary osteoarthritis, right shoulder; M25.411 Effusion, right shoulder; Z88.2 Allergy status to sulfonamides; Z88.8 Allergy status to other drugs, medicaments and biological substances; Z88.1 Allergy status to other antibiotic agents
CPT/HCPCS: 23350

== ENCOUNTER 2017-09-22 17:02 | Emergency (ER) | payer OTHER | END 2017-09-22 21:46 | disposition home or self-care (01) | LOC: M ED 17:02 | DX: M25.511 Pain in right shoulder (principal); R20.2 Paresthesia of skin; M24.411 Recurrent dislocation, right shoulder; F17.200 Nicotine dependence, unspecified, uncomplicated; Z79.899 Other long term (current) drug therapy; Z88.2 Allergy status to sulfonamides; Z88.1 Allergy status to other antibiotic agents | CPT/HCPCS: 73030 ==

== ENCOUNTER → 2017-09-26 | Outpatient (CLI) | payer OTHER | LOC: M RAD 08:12 | DX: M54.2 Cervicalgia (principal) | CPT/HCPCS: 72141 ==

== ENCOUNTER → 2017-10-24 | Outpatient (REF) | payer OTHER, MEDICAID ==
[2017-10-24 12:48] LABS: BASO # 0.1 10^3/uL (0.0-0.2); BASO % 0.9 % (0.0-1.0); EOS # 0.1 10^3/uL (0.0-0.50); EOS % 1.6 % (0.0-3.0); HEMATOCRIT 41.4 % (36.0-47.0); HEMOGLOBIN 13.8 g/dl (12.0-16.0); IMMATURE GRANULOCYTE % 0.4 % (0-3.0); LYMPH # 1.7 10^3/uL (1.5-4.5); LYMPH % 29.5 % (24.0-44.0); MEAN CORPUSCULAR HEMOGLOBIN 29.3 pg (27.0-33.0); MEAN CORPUSCULAR HGB CONC 33.3 g/dl (32.0-36.5); MEAN CORPUSCULAR VOLUME 87.9 fl (80.0-96.0); MONO # 0.4 10^3/uL (0.0-0.8); MONO % 6.7 % (0.0-5.0); NEUTROPHILS # 3.5 10^3/uL (1.8-7.7); NEUTROPHILS % 60.9 % (36.0-66.0); PLATELET COUNT, AUTOMATED 369 10^3/uL (150-450); RED BLOOD COUNT 4.71 10^6/uL (4.00-5.40); RED CELL DISTRIBUTION WIDTH 13.2 % (11.5-14.5); WHITE BLOOD COUNT 5.7 10^3/uL (4.0-10.0)
[2017-10-24 13:00] LABS: INR 0.92; PROTHROMBIN TIME 12.4 SECONDS (12.4-14.5)
[2017-10-24 13:17] LABS: ALBUMIN 4.1 GM/DL (3.2-5.2); ALBUMIN/GLOBULIN RATIO 1.14 (1.00-1.93); ALKALINE PHOSPHATASE 101 U/L (45-117); ALT/SGPT 36 U/L (12-78); ANION GAP 8 MEQ/L (8-16); AST/SGOT 15 U/L (7-37); BILIRUBIN,TOTAL 0.3 MG/DL (0.2-1.0); BLOOD UREA NITROGEN 14 MG/DL (7-18); CALCIUM LEVEL 8.9 MG/DL (8.5-10.1); CARBON DIOXIDE LEVEL 28 MEQ/L (21-32); CHLORIDE LEVEL 107 MEQ/L (98-107); CREATININE FOR GFR 0.62 MG/DL (0.55-1.30); GLOMERULAR FILTRATION RATE > 60.0 (>58); GLUCOSE, FASTING 98 MG/DL (70-100); POTASSIUM SERUM 4.2 MEQ/L (3.5-5.1); SODIUM LEVEL 143 MEQ/L (136-145); TOTAL PROTEIN 7.7 GM/DL (6.4-8.2)
== END ==
LOC: M LAB REF 12:17
DX: Z01.812 Encounter for preprocedural laboratory examination (principal)
CPT/HCPCS: 85610

== ENCOUNTER 2017-11-27 08:36 | Day surgery (SDC) | payer OTHER ==
[2017-11-27] MEDS ORDERED: LR 1,000 ML IV ×4 (08:45→14:00)
[2017-11-27] MEDS ORDERED: fentaNYL 100 MCG/2 ML INJECTION (J3010) As Ordered (09:27)
[2017-11-27] MEDS ORDERED: BUPIVACAINE HCL 0.5% 30 ML VIAL As Ordered (09:27)
[2017-11-27] MEDS ORDERED: MIDAZOLAM INJ 2 MG/2 ML VIAL (J2250) As Ordered ×2 (09:27→10:50)
[2017-11-27] MEDS: fentaNYL 100 MCG/2 ML INJECTION (J3010) IV ×2 (10:20→10:27)
[2017-11-27] MEDS: MIDAZOLAM INJ 2 MG/2 ML VIAL (J2250) IV ×2 (10:20→10:26)
[2017-11-27] MEDS ORDERED: ROCURONIUM BROMIDE 50 MG/5 ML VIAL As Ordered (10:48)
[2017-11-27] MEDS ORDERED: PROPOFOL 200 MG/20 ML VIAL As Ordered (10:48)
[2017-11-27] MEDS ORDERED: ONDANSETRON 4MG/2ML VIAL (J2405) As Ordered (10:49)
[2017-11-27] MEDS ORDERED: KETOROLAC 60 MG/2 ML VIAL (J1885) As Ordered (10:49)
[2017-11-27] MEDS ORDERED: LIDOCAINE 2% INJ 100 MG/5 ML SDV (FOR ANES.) As Ordered (10:49)
[2017-11-27] MEDS ORDERED: dexameTHASONE 4 MG/ML 1ML VIAL (J1100) As Ordered (10:49)
[2017-11-27] MEDS ORDERED: fentaNYL 250 MCG/5 ML INJECTION (J3010) As Ordered (10:50)
[2017-11-27] MEDS ORDERED: PHENYLephrine HCL 500 MCG/5 ML (100MCG/ML) SYRINGE (J2370) As Ordered ×2 (11:47)
[2017-11-27] MEDS: EPINEPHrine 1MG/ML INJ 30ML MD-VIAL As Ordered (11:54)
[2017-11-27] MEDS ORDERED: HYDROmorphone HCL 1 MG/ML SYRINGE (J1170) IV (14:00)
[2017-11-27] MEDS ORDERED: fentaNYL 100 MCG/2 ML INJECTION (J3010) IV (14:00)
[2017-11-27] MEDS ORDERED: PERCOCET 5MG/325MG TAB PO (14:00)
[2017-11-27] MEDS ORDERED: ONDANSETRON 4MG/2ML VIAL (J2405) IV (14:00)
== END 2017-11-27 15:18 | disposition home or self-care (01) ==
LOC: M SDC 08:36
DX: S43.491A Other sprain of right shoulder joint, initial encounter (principal); M25.311 Other instability, right shoulder; E11.9 Type 2 diabetes mellitus without complications; R23.3 Spontaneous ecchymoses; F32.9 Major depressive disorder, single episode, unspecified; G43.909 Migraine, unspecified, not intractable, without status migrainosus; R06.83 Snoring; I67.1 Cerebral aneurysm, nonruptured; E66.9 Obesity, unspecified; Z68.38 Body mass index [BMI] 38.0-38.9, adult; Z88.2 Allergy status to sulfonamides; Z79.899 Other long term (current) drug therapy; Z90.710 Acquired absence of both cervix and uterus
CPT/HCPCS: 29806

== ENCOUNTER 2017-12-30 21:06 | Emergency (ER) | payer OTHER | END 2017-12-30 23:37 | disposition home or self-care (01) | LOC: M ED 21:06 | DX: S40.862A Insect bite (nonvenomous) of left upper arm, initial encounter (principal); W57.XXXA Bitten or stung by nonvenomous insect and other nonvenomous arthropods, initial encounter; Y92.810 Car as the place of occurrence of the external cause; R03.0 Elevated blood-pressure reading, without diagnosis of hypertension; I10 Essential (primary) hypertension; E78.5 Hyperlipidemia, unspecified; K21.9 Gastro-esophageal reflux disease without esophagitis; F33.9 Major depressive disorder, recurrent, unspecified; Z86.73 Personal history of transient ischemic attack (TIA), and cerebral infarction without residual deficits; Z98.890 Other specified postprocedural states; Z88.2 Allergy status to sulfonamides | CPT/HCPCS: 99283 ==

== ENCOUNTER 2018-02-09 10:31 | Emergency (ER) | payer OTHER ==
[2018-02-09] MEDS: FLUCONAZOLE 100 MG TAB PO (11:23)
[2018-02-09] MEDS: CEPHALEXIN 500 MG CAP PO (11:24)
== END 2018-02-09 11:36 | disposition home or self-care (01) ==
LOC: M ED 10:31
DX: L03.313 Cellulitis of chest wall (principal); B35.4 Tinea corporis; E11.9 Type 2 diabetes mellitus without complications; E78.70 Disorder of bile acid and cholesterol metabolism, unspecified; K21.9 Gastro-esophageal reflux disease without esophagitis; Z88.1 Allergy status to other antibiotic agents; Z88.2 Allergy status to sulfonamides; Z79.2 Long term (current) use of antibiotics
CPT/HCPCS: 99282

== ENCOUNTER → 2018-03-23 | Outpatient (CLI) | payer OTHER | LOC: M RAD 15:30 | DX: M25.472 Effusion, left ankle (principal); M19.072 Primary osteoarthritis, left ankle and foot | CPT/HCPCS: 73721 ==

== ENCOUNTER 2018-05-11 13:09 | Emergency (ER) | payer OTHER ==
[2018-05-11] MEDS: IBUPROFEN 800 MG TAB PO (14:00)
== END 2018-05-11 14:12 | disposition home or self-care (01) ==
LOC: M ED 13:09
DX: S62.522A Displaced fracture of distal phalanx of left thumb, initial encounter for closed fracture (principal); W22.8XXA Striking against or struck by other objects, initial encounter; Y92.019 Unspecified place in single-family (private) house as the place of occurrence of the external cause
CPT/HCPCS: 73140

== ENCOUNTER 2018-07-19 11:47 | Day surgery (SDC) | payer OTHER ==
[2018-07-19] MEDS ORDERED: dexameTHASONE 10 MG/1 ML VIAL PRES.FREE (J1100) (11:48)
[2018-07-19] MEDS ORDERED: ROPIvacaine 0.5% 30 ML INJECTION (J2795 PER 1MG) (11:48)
[2018-07-19] MEDS: LR 1,000 ML IV (12:55)
[2018-07-19] MEDS ORDERED: LR 1,000 ML IV ×2 (13:40→20:00)
[2018-07-19] MEDS ORDERED: fentaNYL 100 MCG/2 ML INJECTION (J3010) IV (13:40)
[2018-07-19] MEDS ORDERED: ONDANSETRON 4MG/2ML VIAL (J2405) IV ×2 (13:40→20:00)
[2018-07-19] MEDS ORDERED: NORCO, ANEXSIA 5/325MG TABLET (HYDROcodone/ACETAMINOPHEN) PO (13:40)
[2018-07-19] MEDS ORDERED: fentaNYL 100 MCG/2 ML INJECTION (J3010) As Ordered (14:21)
[2018-07-19] MEDS ORDERED: MIDAZOLAM INJ 2 MG/2 ML VIAL (J2250) As Ordered ×2 (14:21→14:48)
[2018-07-19] MEDS ORDERED: PROPOFOL 200 MG/20 ML VIAL As Ordered (14:47)
[2018-07-19] MEDS ORDERED: fentaNYL 250 MCG/5 ML INJECTION (J3010) As Ordered (14:47)
[2018-07-19] MEDS ORDERED: LIDOCAINE 2% INJ 100 MG/5 ML SDV (FOR ANES.) As Ordered (14:47)
[2018-07-19] MEDS: MIDAZOLAM INJ 2 MG/2 ML VIAL (J2250) IV (14:54)
[2018-07-19] MEDS: fentaNYL 100 MCG/2 ML INJECTION (J3010) IV (14:54)
[2018-07-19] MEDS: EPINEPHrine INJ 1 MG/ML 1ML AMP As Ordered (16:19)
[2018-07-19] MEDS ORDERED: ONDANSETRON 4MG/2ML VIAL (J2405) As Ordered (18:57)
[2018-07-19] MEDS ORDERED: dexameTHASONE 4 MG/ML 1ML VIAL (J1100) As Ordered ×2 (18:57)
[2018-07-19] MEDS ORDERED: KETOROLAC 60 MG/2 ML VIAL (J1885) As Ordered (18:57)
[2018-07-19] MEDS ORDERED: PERCOCET 5MG/325MG TAB PO ×2 (20:00)
== END 2018-07-19 22:10 | disposition home or self-care (01) ==
LOC: M SDC 11:47
DX: M25.372 Other instability, left ankle (principal); M65.872 Other synovitis and tenosynovitis, left ankle and foot; F32.9 Major depressive disorder, single episode, unspecified; G43.909 Migraine, unspecified, not intractable, without status migrainosus; R06.83 Snoring; G47.33 Obstructive sleep apnea (adult) (pediatric); Z88.1 Allergy status to other antibiotic agents; Z88.2 Allergy status to sulfonamides; Z86.14 Personal history of Methicillin resistant Staphylococcus aureus infection; Z90.710 Acquired absence of both cervix and uterus
CPT/HCPCS: 27698

== ENCOUNTER → 2018-09-18 | Outpatient (REF) | payer OTHER ==
[~2018-09-18] MED LIST changes: +/ESCI20TA PO; +ACET30TAB PO; +ASPI81TA85 PO; +ATOR80TA59 PO; +BLAC40CA2 PO; +COLA100C5 PO; -CONRAY-43 43% 50ML VIAL (Q9960) As Ordered; +DOXY100T OR; +ESTR3TA PO; +FLUC10TA OR; +FLUC150T PO; +GLUC500T PO; +IBUP-1022 PO; +IBUP80TA PO; +KEFL500C17 PO; +LEXA1TAB2 PO; +LISI-542 PO; +NAPR-50 PO; +NEXI20CA PO; +NORCOTAB PO; +NYST1POW9 TOP; +OXYC1TAB23 PO; +PERC5TAB8 OR; -PROHANCE 279.3MG/ML 5ML VIAL (A9576) As Ordered; +SIMV20TA2 PO; +SUMA50TA2 PO; +TRAM50TA2 PO; +VITA200016 PO; +WOMECAP2 PO; +ZOFR4TAB14 PO
[2018-09-18 14:10] LABS: HEMOGLOBIN A1c 7.4 %
== END ==
LOC: M LAB REF 12:42
PROVIDERS: ATTEND Family Medicine Addiction Medicine
DX: Z13.9 Encounter for screening, unspecified (principal); G60.9 Hereditary and idiopathic neuropathy, unspecified; I67.1 Cerebral aneurysm, nonruptured; Z68.38 Body mass index [BMI] 38.0-38.9, adult; E66.09 Other obesity due to excess calories; B37.2 Candidiasis of skin and nail; S40.862A Insect bite (nonvenomous) of left upper arm, initial encounter; T07.XXXA Unspecified multiple injuries, initial encounter; Z01.818 Encounter for other preprocedural examination; Z01.812 Encounter for preprocedural laboratory examination; N23 Unspecified renal colic; R39.9 Unspecified symptoms and signs involving the genitourinary system; R06.83 Snoring; R51 Headache

== ENCOUNTER 2018-10-10 21:02 | Emergency (ER) | payer OTHER ==
[~2018-10-10] VITALS: Ht 157.5 cm; Wt 93.2 kg
[2018-10-10] MEDS ORDERED: METF500T13 PO (21:13)
[2018-10-10] MEDS ORDERED: KETOROLAC TROMETHAMINE 10 MG TAB PO ONE (22:45)
--- NOTE | 2018-10-10 23:50 | REPVR ---
EXAM: CT Abdomen and Pelvis Without Contrast EXAM DATE/TIME: 10/10/2018 10:40 PM CLINICAL HISTORY: 52 years old, female; Pain; Abdominal pain; Localized; Right; Additional info: Right flank pain, no injury TECHNIQUE: Axial computed tomography images of the abdomen and pelvis without contrast. All CT scans at this facility use at least one of these dose optimization techniques: automated exposure control; mA and/or kV adjustment per patient size (includes targeted exams where dose is matched to clinical indication); or iterative reconstruction. Coronal and sagittal reformatted images were created and reviewed. COMPARISON: CT ABD/PEL W/IV ORAL CONTRAS 05/16/2017 7:10 PM FINDINGS: Lower thorax: No acute findings. ABDOMEN: Liver: There is a diffuse decrease in hepatic parenchymal density, consistent with fatty infiltration. Hepatomegaly. Gallbladder and bile ducts: The gallbladder is incompletely distended. This is most likely related to incomplete fasting. Clinical correlation to exclude gallbladder pathology suggested. Pancreas: Normal. No ductal dilation. Spleen: Normal. No splenomegaly. Adrenals: Normal. No mass. Kidneys and ureters: Normal. No hydronephrosis. Stomach and bowel: Normal. No obstruction. No mucosal thickening. Appendix: No evidence of appendicitis. PELVIS: Bladder: Unremarkable as visualized. Reproductive: There has been a hysterectomy. ABDOMEN and PELVIS: Intraperitoneal space: Normal. No free air. No significant fluid collection. Bones/joints: No acute fracture. No dislocation. Soft tissues: Unremarkable. Vasculature: Normal. No abdominal aortic aneurysm. Lymph nodes: Normal. No enlarged lymph nodes. IMPRESSION: 1. There is a diffuse decrease in hepatic parenchymal density, consistent with fatty infiltration. Hepatomegaly. 2. The gallbladder is incompletely distended. This is most likely related to incomplete fasting. Clinical correlation to exclude gallbladder pathology suggested. 3. There has been a hysterectomy. Electronically signed by: Dominic Smith On 10/10/2018 23:50:23 PM
[2018-10-11] MEDS ORDERED: KETO10TAB PO (00:07)
[2018-10-11 00:30] VITALS: BP 133/73
== END 2018-10-11 00:31 | disposition home or self-care (01) ==
LOC: M ED 21:02
DX: M54.5 Low back pain (principal); K76.0 Fatty (change of) liver, not elsewhere classified; E11.9 Type 2 diabetes mellitus without complications; E78.00 Pure hypercholesterolemia, unspecified; F33.9 Major depressive disorder, recurrent, unspecified; I67.1 Cerebral aneurysm, nonruptured; Z79.899 Other long term (current) drug therapy; Z88.1 Allergy status to other antibiotic agents

== ENCOUNTER 2018-10-31 17:37 | Emergency (ER) | payer OTHER ==
[~2018-10-31] VITALS: Ht 157.5 cm; Wt 100.2 kg
[~2018-10-31 17:37] MED LIST changes: -/ESCI20TA PO; +ACET-716 PO; -ACET30TAB PO; +HYDR-3715 PO; +KETO10TAB PO; +METF500T13 PO; -NAPR-50 PO; +NAPR-837 PO; -NORCOTAB PO
[2018-10-31] MEDS ORDERED: NAPR-837 PO (19:08)
[2018-10-31 19:20] VITALS: BP 178/91
== END 2018-10-31 19:21 | disposition home or self-care (01) ==
LOC: M ED 17:37
DX: M77.8 Other enthesopathies, not elsewhere classified (principal); E11.9 Type 2 diabetes mellitus without complications; E78.00 Pure hypercholesterolemia, unspecified; I67.1 Cerebral aneurysm, nonruptured; F33.9 Major depressive disorder, recurrent, unspecified; K21.9 Gastro-esophageal reflux disease without esophagitis; Z79.899 Other long term (current) drug therapy; Z79.84 Long term (current) use of oral hypoglycemic drugs; Z88.2 Allergy status to sulfonamides; Z88.8 Allergy status to other drugs, medicaments and biological substances

== ENCOUNTER → 2018-12-10 | Outpatient (CLI) | payer OTHER ==
--- NOTE | 2018-12-10 14:36 | REP ---
REASON: Injury to 4th digit. Assess for fracture. Four views. FINDINGS: No acute fracture or destructive osseous lesion. Electronically Signed by Yaakov Maciel DO 12/10/2018 04:38 P
== END ==
LOC: M RAD 13:13
PROVIDERS: ATTEND Physician Assistant Medical
DX: S69.90XA Unspecified injury of unspecified wrist, hand and finger(s), initial encounter (principal); X58.XXXA Exposure to other specified factors, initial encounter; Y92.89 Other specified places as the place of occurrence of the external cause

== ENCOUNTER 2019-02-04 17:32 | Emergency (ER) | payer OTHER ==
[~2019-02-04] VITALS: Ht 157.5 cm; Wt 94.5 kg
--- NOTE | 2019-02-04 18:15 | REP ---
Clinical: Trauma. Technique: AP, lateral, bilateral oblique and sunrise views. Findings: Generalized age-related changes. No acute fracture or dislocation. Soft tissue swelling. Impression: Soft-tissue swelling. No acute fracture. Electronically Signed by Vinny Santoro MD 02/04/2019 06:06 P
[2019-02-04] MEDS ORDERED: NORCO, ANEXSIA 5/325MG TABLET (HYDROcodone/ACETAMINOPHEN) PO ONE (20:30)
[2019-02-04 20:33] VITALS: BP 152/80
== END 2019-02-04 20:40 | disposition home or self-care (01) ==
LOC: M ED 17:32
DX: M25.361 Other instability, right knee (principal); E11.9 Type 2 diabetes mellitus without complications; E78.5 Hyperlipidemia, unspecified; G47.33 Obstructive sleep apnea (adult) (pediatric); R51 Headache; Z79.84 Long term (current) use of oral hypoglycemic drugs; Z88.2 Allergy status to sulfonamides

== ENCOUNTER 2019-04-04 06:27 | Day surgery (SDC) | payer OTHER ==
[~2019-04-04] VITALS: Ht 157.5 cm; Wt 99.2 kg
[~2019-04-04 06:27] MED LIST changes: +BLAC40CA PO; +MULTCAP PO
[2019-04-04] MEDS ORDERED: NS 1,000 ML IV ONE (07:15)
[2019-04-04] MEDS ORDERED: PROPOFOL 200 MG/20 ML VIAL As Ordered ONE (07:39)
--- NOTE | 2019-04-04 07:55 | ROOR ---
Patient Name: Galina Simms Procedure Date: 04/04/2019 7:29 AM Date of : 1965 Age: 53 Room: [facility] Gender: Female Note Status: Finalized Procedure: Colonoscopy Indications: Screening in patient at increased risk: Family history of 1st-degree relative with colorectal cancer Providers: Son REN MD Referring MD: Kelley CAZARES MD Requesting Provider: Medicines: Monitored Anesthesia Care Complications: No immediate complications. Procedure: Pre-Anesthesia Assessment: - The heart rate, respiratory rate, oxygen saturations, blood pressure, adequacy of pulmonary ventilation, and response to care were monitored throughout the procedure. The Colonoscope was introduced through the anus and advanced to the terminal ileum, with identification of the appendiceal orifice and IC valve. The colonoscopy was performed without difficulty. The patient tolerated the procedure well. The quality of the bowel preparation was unsatisfactory. Findings: The perianal and digital rectal examinations were normal. Three sessile polyps were found in the descending colon, ascending colon and cecum. The polyps were 5 to 6 mm in size. These polyps were removed with a cold snare. Resection and retrieval were complete. Small Internal Hemorrhoids. Retroflexion in the right colon was performed. The exam was otherwise without abnormality on direct and retroflexion views. Impression: - Preparation of the colon was suboptial. - Three 5 to 6 mm polyps in the descending colon, in the ascending colon and in the cecum, removed with a cold snare. Resected and retrieved. - Small Internal Hemorrhoids. - The examination was otherwise normal on direct and retroflexion views. Recommendation: - Repeat colonoscopy in 1 year because the bowel preparation was suboptimal. - (Rec alternate colon preparation for next colonoscopy) Son Ren MD Son REN MD 04/04/2019 7:55:09 AM Electronically signed by Son REN MD Number of Addenda: 0 Note Initiated On: 04/04/2019 7:29 AM Estimated Blood Loss: Estimated blood loss: none.
[2019-04-04 08:10] VITALS: BP 180/94
== END 2019-04-04 08:30 | disposition home or self-care (01) ==
LOC: M OPP 06:27
PROVIDERS: ATTEND Internal Medicine Gastroenterology
DX: Z12.11 Encounter for screening for malignant neoplasm of colon (principal); Z80.0 Family history of malignant neoplasm of digestive organs; D12.4 Benign neoplasm of descending colon; D12.2 Benign neoplasm of ascending colon; D12.0 Benign neoplasm of cecum; Z79.84 Long term (current) use of oral hypoglycemic drugs; Z79.899 Other long term (current) drug therapy; Z88.1 Allergy status to other antibiotic agents; Z88.2 Allergy status to sulfonamides; Z88.8 Allergy status to other drugs, medicaments and biological substances

== ENCOUNTER 2019-04-13 17:06 | Observation (INO) | payer OTHER ==
[~2019-04-13] VITALS: Ht 157.5 cm; Wt 100.3 kg
[2019-04-13 18:22] LABS: BASO % 0.5 % (0.0-1.0); EOS # 0.1 10^3/uL (0.0-0.5); EOS % 1.9 % (0.0-3.0); HEMATOCRIT 40.4 % (36.0-47.0); HEMOGLOBIN 13.6 g/dl (12.0-15.5); LYMPH # 1.8 10^3/uL (1.5-5.0); LYMPH % 24.8 % (24.0-44.0); MEAN CORPUSCULAR HEMOGLOBIN 30.3 pg (27.0-33.0); MEAN CORPUSCULAR HGB CONC 33.7 g/dl (32.0-36.5); MONO # 0.5 10^3/uL (0.0-0.8); MONO % 7.1 % (0.0-5.0); NEUTROPHILS # 4.8 10^3/uL (1.5-8.5); NEUTROPHILS % 65.6 % (36.0-66.0); PLATELET COUNT, AUTOMATED 304 10^3/uL (150-450); RED BLOOD COUNT 4.49 10^6/uL (4.00-5.40); WHITE BLOOD COUNT 7.3 10^3/uL (4.0-10.0)
--- NOTE | 2019-04-13 18:32 | REP ---
Clinical: Syncope . Comparison: 05/01/2017 . Technique: AP and lateral. Findings: The mediastinum and cardiac silhouette are normal. The lung charles are clear and without acute consolidation, effusion, or pneumothorax. The skeletal structures are intact and normal. Impression: 1. No acute cardiopulmonary process. Electronically Signed by Vinny Santoro MD 04/13/2019 06:24 P
[2019-04-13 18:40] LABS: BLOOD UREA NITROGEN 15 MG/DL (7-18); CALCIUM LEVEL 9.2 MG/DL (8.5-10.1); CARBON DIOXIDE LEVEL 27 MEQ/L (21-32); CHLORIDE LEVEL 108 MEQ/L (98-107); CK-MB VALUE MASS < 1.0 NG/ML (<3.6); CPK CREATINE PHOSPHOKINASE 77 U/L (26-192); FREE T4 0.86 NG/DL (0.76-1.46); GLOMERULAR FILTRATION RATE > 60.0 (>51); GLUCOSE, FASTING 182 MG/DL (70-100); MAGNESIUM LEVEL 1.8 MG/DL (1.8-2.4); POTASSIUM SERUM 3.7 MEQ/L (3.5-5.1); SODIUM LEVEL 141 MEQ/L (136-145); TROPONIN I < 0.02 NG/ML (< 0.10)
--- NOTE | 2019-04-13 19:39 | ECGEPIP ---
[facility] - ED Test Date: 2019-04-13 Pat Name: TAN ALEMAN Department: Room: - Gender: Female Financial Reporting Manager: padmini : 1965 Requested By: WON South Order Number: [id number] Reading MD: Celia Lee Measurements Intervals [place] Rate: 75 P: 44 [place]: 178 QRS: -10 QRSD: 90 T: 3 QT: 370 QTc: 413 Interpretive Statements SINUS RHYTHM NSTTW ABNORMALITY VOLTAGE CRITERIA FOR LVH DECREASED RATE 11/13/17 Electronically Signed on 04-13-2019 19:39:36 EDT by Celia Lee
[2019-04-13] MEDS ORDERED: NS 1,000 ML IV ONE (19:45)
[2019-04-13] MEDS ORDERED: ISOVUE-370 76% 100ML VIAL (Q9967) As Ordered ONE (19:47)
--- NOTE | 2019-04-13 20:56 | REPVR ---
EXAM: CT Head Without and With Contrast EXAM DATE/TIME: 04/13/2019 8:14 PM CLINICAL HISTORY: 53 years old, female; Syncope and collapse; Additional info: HX of aneurysm/weak/vertigo TECHNIQUE: Imaging protocol: Computed tomography of the head without and with intravenous contrast. Radiation optimization: All CT scans at this facility use at least one of these dose optimization techniques: automated exposure control; mA and/or kV adjustment per patient size (includes targeted exams where dose is matched to clinical indication); or iterative reconstruction. Contrast material: ISOVUE 370; Contrast volume: 100 ml; Contrast route: IV; COMPARISON: CT Head without contrast 05/01/2017 8:14 PM FINDINGS: Brain: Normal. No hemorrhage. Unremarkable white matter. No mass effect. Ventricles: Normal. No ventriculomegaly. Bones/joints: Unremarkable. No acute fracture. Sinuses: Visualized sinuses are unremarkable. No fluid levels. Mastoid air cells: Visualized mastoid air cells are well aerated. Soft tissues: Unremarkable. IMPRESSION: No acute intracranial abnormality. Electronically signed by: Dominic Smith On 04/13/2019 20:56:39 PM
[2019-04-13] MEDS: HumaLOG INSULIN (NovoLOG) PER UNIT SC SCH (21:00)
[2019-04-13] MEDS ORDERED: METF-791 PO (22:14)
--- NOTE | 2019-04-13 23:08 | HPEPDOC ---
[facility] Medical History & Physical Date of Admission Apr 14, 2019 Date of Service: Apr 14, 2019 Primary Care Physician: Kelley Smith Attending Physician: TAYLOR REEDER MD History and Physical TIME OF SERVICE: 10:30 PM CHIEF COMPLAINT: Weakness HISTORY OF PRESENT ILLNESS: This is a 53-year-old female who presents with complaints of feeling weak " like I have no energy". Per discussion with the ED provider her neurological exam was unremarkable; when he explained to the patient that her workup was unremarkable and that she could go home the patient said that she couldn't walk. When he tried to get her to walk she declined. He reported that previously the patient was walking up and down the hallway. When I went to examine the patient, she reported that she was still weak and unable to get up to walk. She denied having headaches, denies having dizziness, denies having chest pain, denies having shortness of breath, denies having stomach pain, denies having constipation, denies having diarrhea, denies having joint pain, denies having rash, denies having fevers, denies having chills. She denied having suicidal or homicidal ideation. REVIEW OF SYSTEMS: 12 point review of systems negative except as listed in HPI PAST MEDICAL/ SURGICAL HISTORY: Qfd-qvqgrxh-fjwtwloce diabetes. Chronic hypertension. Dyslipidemia GERD Depression/bipolar disorder ? Migraines? Cerebral aneurysms it's been managed conservatively Status post hysterectomy. Status post bilateral carpal tunnel repair. Status post hysterectomy Status post adhesion lysis SOCIAL HISTORY: This with her . Does not smoke FAMILY HISTORY: Lung cancer. Coronary artery disease ALLERGIES: Please see below. HOME MEDICATIONS: Please see below. PHYSICAL EXAMINATION: VITAL SIGNS: Please see below. GENERAL APPEARANCE: Well-nourished, well-developed, not in apparent distress HEENT: Normocephalic, atraumatic, mucous members moist and pink/ CARDIOVASCULAR: Regular rate and rhythm. No murmurs, rubs or gallops LUNGS: Clear to auscultation bilaterally on room air ABDOMEN: Sounds hypoactive. Abdomen is soft and nontender on palpation MUSCULOSKELETAL: Range of motion intact in all extremities, strength is 5 out of 5 in all extremities. The patient declined request to get up to walk INTEGUMENT: has virlization NEUROLOGICAL: Cranial nerves II-12 grossly intact. Speech is not dysarthric PSYCHIATRIC: Alert and oriented to person, place and time, able to understand and follow commands LABORATORY DATA: See below. IMAGING: Chest x-ray is negative for any acute process CT of the head is negative for any acute process MICROBIOLOGY: Please see below. ASSESSMENT: Ms. Simms is a 53-year-old female with a past with history of diabetes, hypertension, dyslipidemia, and depression who will be admitted for observation and physical therapy evaluation because of complaints of unsteady gait. PLAN: 1. Weakness Subjective complaints of inability to walk Workup including CBC, CMP, TSH, troponin, EKG, CT of the head unremarkable. I explained to the patient should be admitted under observation and that her insurance may not cover her stay because the workup was negative, but she insisted that she still wanted to be admitted to the hospital. Plan: Admit to medical/PT eval / fall precautions 2. Gys-cyzbxtz-ssldoqnzs diabetes mellitus Plan: diabetic diet / f/u accuchecks & A1C / hypoglycemia protocol / sliding scale insulin / hold oral anti-glycemics 3. Uncontrolled hypertension. Plan: Start amlodipine 5 mg QHS 4. Migraines? Plan: Continue sumatriptan 5.Obesity -BMI >35 + DM qualifies the patient for bariatric surgery Plan: can f/u w PCP for rocket motor mechanic consult, STOP BANG questionnaire & referral for Bariatric surgery / recommend cardiovascular exercise for 40 min 4-5 days a week DVT prophylaxis with SCDs. Disposition pending clinical course Vital Signs Vital Signs Date Time Temp Pulse Resp B/P (MAP) Pulse Ox O2 Delivery O2 Flow Rate FiO2 04/13/19 21:59 Room Air 04/13/19 21:15 78 20 148/67 (94) 96 04/13/19 17:17 97.9 Laboratory Data Labs 24H Laboratory Tests 2 04/13/19 17:55: Immature Granulocyte % (Auto) 0.1, White Blood Count 7.3, Red Blood Count 4.49, Hemoglobin 13.6, Hematocrit 40.4, Mean Corpuscular Volume 90.0, Mean Corpuscular Hemoglobin 30.3, Mean Corpuscular Hemoglobin Concent 33.7, Red Cell Distribution Width 13.1, Platelet Count 304, Neutrophils (%) (Auto) 65.6, Lymphocytes (%) (Auto) 24.8, Monocytes (%) (Auto) 7.1H, Eosinophils (%) (Auto) 1.9, Basophils (%) (Auto) 0.5, Neutrophils # (Auto) 4.8, Lymphocytes # (Auto) 1.8, Monocytes # (Auto) 0.5, Eosinophils # (Auto) 0.1, Basophils # (Auto) 0.0, Nucleated Red Blood Cells % (auto) 0.0, Anion Gap 6L, Glomerular Filtration Rate > 60.0, Blood Urea Nitrogen 15, Creatinine 0.90, Sodium Level 141, Potassium Level 3.7, Chloride Level 108H, Carbon Dioxide Level 27, Calcium Level 9.2, Total Creatine Kinase 77, Magnesium Level 1.8, Creatine Kinase MB < 1.0, Creatine Kinase MB Relative Index 1.30, Troponin I < 0.02, Thyroid Stimulating Hormone (TSH) 2.340, Free Thyroxine 0.86 CBC/BMP Laboratory Tests 04/13/19 17:55 Red Blood Count 4.49, Mean Corpuscular Volume 90.0, Mean Corpuscular Hemoglobin 30.3, Mean Corpuscular Hemoglobin Concent 33.7, Red Cell Distribution Width 13.1, Neutrophils (%) (Auto) 65.6, Lymphocytes (%) (Auto) 24.8, Monocytes (%) (Auto) 7.1 H, Eosinophils (%) (Auto) 1.9, Basophils (%) (Auto) 0.5, Neutrophils # (Auto) 4.8, Lymphocytes # (Auto) 1.8, Monocytes # (Auto) 0.5, Eosinophils # (Auto) 0.1, Basophils # (Auto) 0.0, Calcium Level 9.2, Total Creatine Kinase 77 Home Medications Scheduled Black Cohosh Root Extract (Black Cohosh) 40 Mg Capsule, 80 MG PO QHS Metformin HCl (Metformin HCl ER) 500 Mg Tab.er.24h, 500 MG PO BID Multivitamin (Multivitamins) 1 Each Capsule, 1 CAP PO DAILY Scheduled PRN Sumatriptan Succinate (Sumatriptan Succinate) 50 Mg Tab, 50 MG PO ASDIRECTED PRN for MIGRAINE Allergies Coded Allergies: Sulfa (Sulfonamide Antibiotics) (Verified Adverse Reaction, Unknown, N/V, 03/21/19) A-FIB/CHADSVASC A-FIB History Current/History of A-Fib/PAF?: No Current PO Anticoag Therapy: No TAYLOR REEDER MD Apr 13, 2019 23:08
[2019-04-13] MEDS ORDERED: GLUCAGON FOR INJ 1 MG VIAL (J1610) SC PRN (23:15)
[2019-04-13] MEDS ORDERED: DEXTROSE 50% 50 ML SYRINGE IV PRN (23:15)
[2019-04-13] MEDS ORDERED: GLUCOSE 4 GM CHEW TABLET PO PRN (23:15)
[2019-04-14] MEDS ORDERED: SUMAtriptan SUCCINATE 25 MG TAB PO PRN (00:15)
[2019-04-14] MEDS ORDERED: amLODIPine 5 MG TAB PO ONE (00:45)
[2019-04-14 01:55] VITALS: BP 168/74
[2019-04-14 06:00] VITALS: BP 144/87
[2019-04-14] MEDS: ENOXAPARIN 40 MG/0.4 ML SYRINGE (J1650) SC SCH (06:11)
[2019-04-14] MEDS: HumaLOG INSULIN (NovoLOG) PER UNIT SC SCH ×4 (07:30→21:00)
[2019-04-14 08:54] LABS: HEMATOCRIT 41.9 % (36.0-47.0); HEMOGLOBIN 13.8 g/dl (12.0-15.5); MEAN CORPUSCULAR HEMOGLOBIN 29.9 pg (27.0-33.0); MEAN CORPUSCULAR HGB CONC 32.9 g/dl (32.0-36.5); MEAN CORPUSCULAR VOLUME 90.9 fl (80.0-96.0); PLATELET COUNT, AUTOMATED 346 10^3/uL (150-450); RED BLOOD COUNT 4.61 10^6/uL (4.00-5.40); WHITE BLOOD COUNT 5.9 10^3/uL (4.0-10.0)
[2019-04-14 09:09] LABS: BLOOD UREA NITROGEN 12 MG/DL (7-18); CALCIUM LEVEL 8.9 MG/DL (8.5-10.1); CARBON DIOXIDE LEVEL 25 MEQ/L (21-32); CHLORIDE LEVEL 109 MEQ/L (98-107); CREATININE FOR GFR 0.77 MG/DL (0.55-1.30); GLOMERULAR FILTRATION RATE > 60.0 (>51); GLUCOSE, FASTING 117 MG/DL (70-100); POTASSIUM SERUM 3.9 MEQ/L (3.5-5.1); SODIUM LEVEL 142 MEQ/L (136-145)
[2019-04-14 12:25] VITALS: BP 148/82
--- NOTE | 2019-04-14 12:32 | IPNPDOC ---
Date Seen The patient was seen on 04/14/19. Progress Note SUBJECTIVE: Patient tells me that she still feels lightheaded and somewhat weak but otherwise is feeling significantly better than yesterday. She tells me yesterday she had 2 episodes where she passed out and felt lightheaded she denies any palpitations loss of bladder or bowel head trauma chest pressure shortness of breath nausea vomiting diarrhea fevers or chills. states she had an episode like this in the past those related to carbon monoxide poisoning but the detectors did not detect anything yesterday. He also reports she had some slurred speech which has since resolved and also reports that she had significant abnormalities on her telemetry in the emergency room. OBJECTIVE PHYSICAL EXAMINATION: VITAL SIGNS: Please see below. GENERAL: Pleasant morbidly obese malodorous female sitting up in a chair awake alert oriented speaking in complete sentences no acute distress. She is accompanied by her and sister HEENT: Moist mucous membranes no elevation in CVP prominent hirsutism, poor dentition CARDIOVASCULAR: S1 S2 regular no additional heart sounds appreciated. RESPIRATORY: Clear to auscultation bilaterally. ABDOMINAL: Bowel sounds present abdomen soft and nontender, obese EXTREMITIES: No clubbing cyanosis or edema, poor nail care NEUROLOGICAL: Spontaneously moves all 4 extremities cranial 2 through 12 grossly intact no gross focal deficits appreciated PSYCHOLOGICAL: Appropriate LABORATORY DATA, MICROBIOLOGY: Please see below. IMAGING STUDIES: Chest x-ray:1. No acute cardiopulmonary process. Head CT:No acute intracranial abnormality. ASSESSMENT AND PLAN: This is a 53 y/o F with weakness and syncope. PROBLEMS: 1. Weakness and syncope: Patient had 2 episodes which were witness by the , the etiology is not immediately clear. I will monitor for 24 hours on remote telemetry and check MRI of the brain given that when she previously had a syncopal episode she learned she has a brain aneurysm which is being monitored closely on the outpatient setting. She denies intoxication or new medications, no seizure like activity, symptoms appear to be resolving. Will have her work with PT also. Prior to the onset of her symptoms yesterday she was in her usual state of good health. 2. Hypertension: Continue with amlodipine. 3. Diabetes: Fingersticks well controlled. 4. Obesity: Complicating care. DVT prophylaxis: Lovenox DISPOSITION: Pending telemetry as well as MRI. Possibly home in the next 24 hours VS, I&O, 24H, Fishbone Vital Signs/I&O Vital Signs Date Time Temp Pulse Resp B/P (MAP) Pulse Ox O2 Delivery O2 Flow Rate FiO2 04/14/19 06:00 98.1 78 18 144/87 (106) 97 04/14/19 00:55 Room Air I&O- Last 24 Hours up to 6 AM 04/14/19 06:00 Intake Total 1250 ml Balance 1250 ml Laboratory Data 24H LABS Laboratory Tests 2 04/13/19 17:55: Immature Granulocyte % (Auto) 0.1, White Blood Count 7.3, Red Blood Count 4.49, Hemoglobin 13.6, Hematocrit 40.4, Mean Corpuscular Volume 90.0, Mean Corpuscular Hemoglobin 30.3, Mean Corpuscular Hemoglobin Concent 33.7, Red Cell Distribution Width 13.1, Platelet Count 304, Neutrophils (%) (Auto) 65.6, Lymphocytes (%) (Auto) 24.8, Monocytes (%) (Auto) 7.1H, Eosinophils (%) (Auto) 1.9, Basophils (%) (Auto) 0.5, Neutrophils # (Auto) 4.8, Lymphocytes # (Auto) 1.8, Monocytes # (Auto) 0.5, Eosinophils # (Auto) 0.1, Basophils # (Auto) 0.0, Nucleated Red Blood Cells % (auto) 0.0, Anion Gap 6L, Glomerular Filtration Rate > 60.0, Blood Urea Nitrogen 15, Creatinine 0.90, Sodium Level 141, Potassium Level 3.7, Chloride Level 108H, Carbon Dioxide Level 27, Calcium Level 9.2, Total Creatine Kinase 77, Magnesium Level 1.8, Creatine Kinase MB < 1.0, Creatine Kinase MB Relative Index 1.30, Troponin I < 0.02, Thyroid Stimulating Hormone (TSH) 2.340, Free Thyroxine 0.86 04/13/19 23:28: Bedside Glucose (Misc Panel) 135H 04/14/19 08:21: Bedside Glucose (Misc Panel) 124H 04/14/19 08:24: Nucleated Red Blood Cells % (auto) 0.0, Anion Gap 8, Glomerular Filtration Rate > 60.0, Blood Urea Nitrogen 12, Creatinine 0.77, Sodium Level 142, Potassium Level 3.9, Chloride Level 109H, Carbon Dioxide Level 25, Calcium Level 8.9, Estimated Mean Plasma Glucose 154H, Hemoglobin A1c 7.0 CBC/BMP Laboratory Tests 04/13/19 17:55 Red Blood Count 4.49, Mean Corpuscular Volume 90.0, Mean Corpuscular Hemoglobin 30.3, Mean Corpuscular Hemoglobin Concent 33.7, Red Cell Distribution Width 13.1, Neutrophils (%) (Auto) 65.6, Lymphocytes (%) (Auto) 24.8, Monocytes (%) (Auto) 7.1 H, Eosinophils (%) (Auto) 1.9, Basophils (%) (Auto) 0.5, Neutrophils # (Auto) 4.8, Lymphocytes # (Auto) 1.8, Monocytes # (Auto) 0.5, Eosinophils # (Auto) 0.1, Basophils # (Auto) 0.0, Calcium Level 9.2, Total Creatine Kinase 77 04/14/19 08:24 Red Blood Count 4.61, Mean Corpuscular Volume 90.9, Mean Corpuscular Hemoglobin 29.9, Mean Corpuscular Hemoglobin Concent 32.9, Red Cell Distribution Width 13.4, Calcium Level 8.9 MATTHEW RAYMOND MD Apr 14, 2019 12:32
--- NOTE | 2019-04-14 12:36 | REP ---
Clinical: Weakness and dizziness. Technique: Standard noncontrast MRI of the brain sequencing. Comparison: 11/11/2009. Findings: The ventricles, sulci, and cisterns are symmetric and normal. Hu-white differentiation is maintained. No acute intracranial hemorrhage, mass or mass effect is appreciated. There is a small 7 mm chronic lacuna in the right insula. No further abnormal signal intensity foci are appreciated. Midbrain and midline structures appear normal. Posterior fossa appears normal. No extra-axial collection. Bilateral orbits are symmetric. Evaluation of the diffusion weighted and ADC mapping sequences are unremarkable and without evidence for acute infarction. Impression: Negative noncontrast MRI of the brain. Electronically Signed by Vinny Santoro MD 04/14/2019 12:28 P
[2019-04-14 14:00] VITALS: BP 140/78
[2019-04-14 20:00] VITALS: BP 143/81
[2019-04-14 20:45] VITALS: BP 140/78
[2019-04-14] MEDS ORDERED: amLODIPine 5 MG TAB PO SCH (21:00)
[2019-04-15] MEDS: ENOXAPARIN 40 MG/0.4 ML SYRINGE (J1650) SC SCH (05:14)
[2019-04-15 06:00] VITALS: BP 143/81
[2019-04-15] MEDS: HumaLOG INSULIN (NovoLOG) PER UNIT SC SCH ×2 (07:53→12:03)
[2019-04-15] MEDS ORDERED: AMLO5TAB6 PO (09:36)
--- NOTE | 2019-04-16 12:47 | DS.PDOC ---
Discharge Summary General Date of Admission Apr 13, 2019 at 17:07 Date of Discharge 04/15/19 Primary Care Physician: Kelley Smith Attending Physician: MATTHEW RAYMOND MD Discharge Summary PROCEDURES PERFORMED DURING STAY: None ADMITTING/DISCHARGE DIAGNOSES: Syncopal episode Hypertension Diabetes Obesity GERD Dyslipidemia Cerebral aneurysm COMPLICATIONS/CHIEF COMPLAINT: Altered Mental Status, Suicide Attempt. HISTORY OF PRESENT ILLNESS/HOSPITAL COURSE: 53-year-old female presented to [facility] emergency department with chief complaint of feeling weak. There were no objective physical exam findings on presentation and her initial work up in the ED was unremarkable. When this was explained to the patient she stated she couldn't walk and when the provider tried to get her to walk she declined. The admitting hospitalist similarly tried to get her to walk however she was weak and unable to do so, so she was admitted for observation. On day one of her hospital stay she felt significantly better than yesterday although still somewhat weak and lightheaded. He was also elicited that the day of her admission she had 2 episodes of syncope where she only felt lightheaded prior to this incident occurring. Her commented that she had previous episodes like this in the past related to carbon monoxide poisoning, but the detectors failed to detect anything. He also stated she was having slurred speech that had since resolved and that their were abnormal telemetry events in the emergency department. An MRI was ordered by Dr. Raymond and she was placed on telemetry overnight to look for any abnormalities. None were observed and her MRI was normal. She felt much better the day of discharge, was cleared by physical therapy as safe for home with recommendations to continue PT outpatient for continued strengthening and was subsequently discharged from [facility]. DISCHARGE MEDICATIONS: Please see below. ALLERGIES: Please see below. Vitals: (see below) General: No acute distress, laying comfortably in bed. HEENT: Normocephalic, atraumatic. EOMI. No scleral icterus. Moist mucous membranes. No pharyngeal erythema or uvular deviation. Neck: No JVD, lymphadenopathy, or thyromegaly. Cardiac: RRR, Normal S1 and S2, No murmurs, gallops, rubs. Pulm: Clear to auscultation b/l. Symmetric thorax. No wheezing, crackles, rhonchi Abd: Bowel Sounds present. Abdomen is soft, non-tender, non-distended. Ext: No edema or cyanosis Skin: No skin changes Neuro: No focal neuro deficits Psych: Appropriate affect LABORATORY DATA: Please see below. IMAGIN04/13/19 chest x-ray: No acute cardiopulmonary process. 04/13/[address]: No acute intracranial abnormality 04/14/19 brain MRI: Negative noncontrast MRI of the brain PROGNOSIS: Good ACTIVITY: As tolerated. DIET: Consistent carbohydrates DISCHARGE PLAN: Discharge home with script for outpatient PT DISPOSITION: discharge home. DISCHARGE INSTRUCTIONS: 1. Please follow-up with your primary care provider in the next 7 days 2. Please continue outpatient physical therapy DISCHARGE CONDITION: Stable. I saw and evaluated the patient. I agree with the findings and plan of care as documented in the documenters note. I spent 45 minutes coordinating this patient's discharge. Vital Signs/I&Os Vital Signs Date Time Temp Pulse Resp B/P (MAP) Pulse Ox O2 Delivery O2 Flow Rate FiO2 04/15/19 06:00 98.3 79 17 143/81 (101) 95 04/14/19 00:55 Room Air I&O- Last 24 Hours up to 6 AM 04/16/19 06:00 Intake Total 720 ml Balance 720 ml Discharge Medications Scheduled Amlodipine Besylate (Amlodipine Besylate) 5 Mg Tablet, 5 MG PO QHS Please take 1 tablet every evening Black Cohosh Root Extract (Black Cohosh) 40 Mg Capsule, 80 MG PO QHS, (Reported) Metformin HCl (Metformin HCl ER) 500 Mg Tab.er.24h, 500 MG PO BID, (Reported) Multivitamin (Multivitamins) 1 Each Capsule, 1 CAP PO DAILY, (Reported) Scheduled PRN Sumatriptan Succinate (Sumatriptan Succinate) 50 Mg Tab, 50 MG PO ASDIRECTED PRN for MIGRAINE, (Reported) Allergies Coded Allergies: Sulfa (Sulfonamide Antibiotics) (Verified Adverse Reaction, Unknown, N/V, 03/21/19) GME ATTESTATION GME ATTESTATION My faculty preceptor for this patient encounter was physically present during the encounter and was fully available. All aspects of the patient interview, examination, medical decision making process, and medical care plan development were reviewed and approved by the faculty preceptor. The faculty preceptor is aware and concurs with the plan as stated in the body of this note and will attest to such by his/her cosignature. SUDHEER LEVY DO Apr 16, 2019 12:47 MATTHEW RAYMOND MD Apr 23, 2019 12:10
== END 2019-04-15 13:43 | disposition home or self-care (01) ==
LOC: EDBD 17:06 → M ED 17:06 → M ED INP 17:07 → M MS5PR 04-14 01:51 → M MSPAV 04-14 11:42
PROVIDERS: ADMIT Internal Medicine; ATTEND Internal Medicine
DX: R55 Syncope and collapse (principal); I10 Essential (primary) hypertension; E11.9 Type 2 diabetes mellitus without complications; E66.9 Obesity, unspecified; K21.9 Gastro-esophageal reflux disease without esophagitis; E78.49 Other hyperlipidemia; F32.9 Major depressive disorder, single episode, unspecified; Z88.2 Allergy status to sulfonamides; Z79.899 Other long term (current) drug therapy; Z79.84 Long term (current) use of oral hypoglycemic drugs
CPT/HCPCS: 36415; 70470; 70551; 71046; 80048; 82550; 82553; 83036; 83735; 84439; 84443; 85025; 85027; 93005; 93041; 94760; 96360; 96372; 97161; 99285; J1650; Q9967

== ENCOUNTER 2019-05-19 17:43 | Emergency (ER) | payer OTHER ==
[~2019-05-19] VITALS: Ht 157.5 cm; Wt 100.1 kg
[~2019-05-19 17:43] MED LIST changes: +AMLO5TAB6 PO; +METF-791 PO
[2019-05-19 19:30] VITALS: BP 136/79
[2019-05-19 19:47] LABS: BASO % 0.5 % (0.0-1.0); EOS # 0.2 10^3/uL (0.0-0.5); EOS % 2.2 % (0.0-3.0); HEMATOCRIT 41.1 % (36.0-47.0); HEMOGLOBIN 13.7 g/dl (12.0-15.5); LYMPH # 2.3 10^3/uL (1.5-5.0); LYMPH % 29.9 % (24.0-44.0); MEAN CORPUSCULAR HGB CONC 33.3 g/dl (32.0-36.5); MEAN CORPUSCULAR VOLUME 90.1 fl (80.0-96.0); MONO # 0.4 10^3/uL (0.0-0.8); MONO % 5.7 % (0.0-5.0); NEUTROPHILS # 4.7 10^3/uL (1.5-8.5); NEUTROPHILS % 61.2 % (36.0-66.0); PLATELET COUNT, AUTOMATED 330 10^3/uL (150-450); RED BLOOD COUNT 4.56 10^6/uL (4.00-5.40); WHITE BLOOD COUNT 7.7 10^3/uL (4.0-10.0)
[2019-05-19 19:53] LABS: INR 1.05; PROTHROMBIN TIME 13.4 SECONDS (11.8-14.0)
[2019-05-19 19:54] LABS: PARTIAL THROMBOPLASTIN TIME 27.1 SECONDS (25.0-38.4)
[2019-05-19 19:57] LABS: ALBUMIN 3.6 GM/DL (3.2-5.2); ALT/SGPT 37 U/L (12-78); BILIRUBIN,DIRECT < 0.1 MG/DL (0.0-0.2); BILIRUBIN,TOTAL 0.2 MG/DL (0.2-1.0); BLOOD UREA NITROGEN 13 MG/DL (7-18); CALCIUM LEVEL 9.1 MG/DL (8.5-10.1); CARBON DIOXIDE LEVEL 29 MEQ/L (21-32); CHLORIDE LEVEL 107 MEQ/L (98-107); CREATININE FOR GFR 1.05 MG/DL (0.55-1.30); GLOMERULAR FILTRATION RATE 58.8 (>51); GLUCOSE, FASTING 209 MG/DL (70-100); LIPASE 302 U/L (73-393); SODIUM LEVEL 141 MEQ/L (136-145)
== END 2019-05-19 20:05 | disposition left against medical advice (07) ==
LOC: M ED 17:43
DX: K92.0 Hematemesis (principal); R04.2 Hemoptysis; K21.9 Gastro-esophageal reflux disease without esophagitis; Z88.2 Allergy status to sulfonamides; R51 Headache; Z86.79 Personal history of other diseases of the circulatory system; E78.00 Pure hypercholesterolemia, unspecified; I10 Essential (primary) hypertension; G47.30 Sleep apnea, unspecified; F32.9 Major depressive disorder, single episode, unspecified; Z79.899 Other long term (current) drug therapy

== ENCOUNTER 2019-06-13 12:14 | Emergency (ER) | payer OTHER ==
[~2019-06-13] VITALS: Ht 157.5 cm; Wt 101.4 kg
[2019-06-13 12:14] VITALS: BP 166/78
[2019-06-13] MEDS ORDERED: traMADol 50 MG TAB PO ONE (13:15)
[2019-06-13] MEDS ORDERED: TRAM50TA2 PO (13:15)
== END 2019-06-13 13:23 | disposition home or self-care (01) ==
LOC: M ED 12:14
DX: M17.11 Unilateral primary osteoarthritis, right knee (principal); Z79.899 Other long term (current) drug therapy; Z88.2 Allergy status to sulfonamides

== ENCOUNTER → 2019-07-01 | Outpatient (CLI) | payer OTHER ==
[~2019-07-01] MED LIST changes: +SIMV20TA22 PO
[2019-07-01 08:52] LABS: BASO % 0.5 % (0.0-1.0); EOS # 0.2 10^3/uL (0.0-0.5); EOS % 2.7 % (0.0-3.0); HEMATOCRIT 41.9 % (36.0-47.0); HEMOGLOBIN 13.6 g/dl (12.0-15.5); LYMPH # 1.5 10^3/uL (1.5-5.0); LYMPH % 27.9 % (24.0-44.0); MEAN CORPUSCULAR HEMOGLOBIN 29.7 pg (27.0-33.0); MEAN CORPUSCULAR HGB CONC 32.5 g/dl (32.0-36.5); MEAN CORPUSCULAR VOLUME 91.5 fl (80.0-96.0); MONO # 0.3 10^3/uL (0.0-0.8); NEUTROPHILS # 3.4 10^3/uL (1.5-8.5); NEUTROPHILS % 62.4 % (36.0-66.0); PLATELET COUNT, AUTOMATED 352 10^3/uL (150-450); RED BLOOD COUNT 4.58 10^6/uL (4.00-5.40); WHITE BLOOD COUNT 5.5 10^3/uL (4.0-10.0)
[2019-07-01 09:05] LABS: BLOOD UREA NITROGEN 16 MG/DL (7-18); CALCIUM LEVEL 9.3 MG/DL (8.5-10.1); CARBON DIOXIDE LEVEL 29 MEQ/L (21-32); CHLORIDE LEVEL 107 MEQ/L (98-107); CREATININE FOR GFR 0.79 MG/DL (0.55-1.30); GLOMERULAR FILTRATION RATE > 60.0 (>51); GLUCOSE, FASTING 141 MG/DL (70-100); SODIUM LEVEL 141 MEQ/L (136-145)
[2019-07-01 10:20] LABS: HEMOGLOBIN A1c 7.6 %
== END ==
LOC: M LAB 08:03
PROVIDERS: ATTEND Internal Medicine
DX: I10 Essential (primary) hypertension (principal); E11.9 Type 2 diabetes mellitus without complications

== ENCOUNTER → 2019-08-08 | Outpatient (CLI) | payer OTHER ==
--- NOTE | 2019-08-08 14:56 | REPMRS ---
Patient History The patient states she has not had a clinical breast exam in over a year. Family history of breast cancer at age 50 or over and colorectal cancer at age 50 or over in mother. Taking estrogen for 1 year. Digital Woman Screen Mammo: August 08, 2019 - Exam #: [id number] Bilateral CC and MLO view(s) were taken. Technologist: Tracy Allison, Technologist Prior study comparison: August 03, 2018, bilateral digital woman screen mammo performed at [facility]. August 02, 2017, digital woman screen mammo performed at [facility]. July 29, 2016, digital woman screen mammo performed at [facility]. FINDINGS: There are scattered fibroglandular densities. There has been no change in the appearance of the mammogram from the prior studies. There is a mild amount of scattered fibroglandular density which is fairly symmetric. There is no interval development of dominant mass, architectural distortion, or grouped microcalcification suggestive of malignancy. 3-D tomosynthesis shows no additional findings. Assessment: BI-RADS/ACR category 1 mammogram. Negative Mammogram. Recommendation Routine screening mammogram of both breasts in 1 year (for women over age 40). This patient's Lifetime Breast Cancer Risk is estimated at 17.1 %. This mammogram was interpreted with the aid of an FDA-approved computer-aided dectection system. Electronically Signed By: Elmo Doran MD 08/08/19 [id number]
== END ==
LOC: M WHC 12:52
PROVIDERS: ATTEND Internal Medicine
DX: Z12.31 Encounter for screening mammogram for malignant neoplasm of breast (principal); Z80.3 Family history of malignant neoplasm of breast; Z80.0 Family history of malignant neoplasm of digestive organs

== ENCOUNTER 2019-08-22 12:37 | Emergency (ER) | payer OTHER ==
[~2019-08-22] VITALS: Ht 157.5 cm; Wt 101.5 kg
[2019-08-22] MEDS ORDERED: FLUT15.820 (12:44)
[2019-08-22] MEDS ORDERED: KETOROLAC 60 MG/2 ML VIAL (J1885) IM ONE (13:15)
[2019-08-22] MEDS ORDERED: CYCLOBENZAPRINE 10 MG TAB PO ONE (13:15)
[2019-08-22 13:53] VITALS: BP 157/83
== END 2019-08-22 13:55 | disposition home or self-care (01) ==
LOC: M ED 12:37
DX: S33.5XXA Sprain of ligaments of lumbar spine, initial encounter (principal); X50.1XXA Overexertion from prolonged static or awkward postures, initial encounter; Y92.9 Unspecified place or not applicable; Y93.9 Activity, unspecified; Y99.9 Unspecified external cause status; E11.9 Type 2 diabetes mellitus without complications; I10 Essential (primary) hypertension; E78.5 Hyperlipidemia, unspecified; R51 Headache; G47.33 Obstructive sleep apnea (adult) (pediatric); K21.9 Gastro-esophageal reflux disease without esophagitis; F32.9 Major depressive disorder, single episode, unspecified; Z79.899 Other long term (current) drug therapy; Z88.2 Allergy status to sulfonamides
CPT/HCPCS: 96372; 99283; J1885

== ENCOUNTER → 2019-09-02 | Outpatient (CLI) | payer OTHER ==
[~2019-09-02] MED LIST changes: +FLUT15.820
--- NOTE | 2019-09-03 07:24 | REP ---
DIAGNOSTIC MAMMOGRAM LEFT BREAST WITH 3D TOMOSYNTHESIS, LEFT BREAST ULTRASOUND: Patient reports two palpable lumps, one medially and one laterally, in the left breast. This is new when compared to prior study of 08/08/2019. Comparison made with prior exam as well as other prior studies. Family history of breast cancer in mother over age 50. [facility] lifetime risk of breast cancer 17.1%. MLO and ML views of the left breast were performed with 3D tomosynthesis in addition to spot compression views of each palpable abnormality. Mild to moderate fibroglandular tissue is stable with no new mass, architectural distortion or clustered microcalcifications. Real-time sonographic evaluation of the left breast was performed both medially and laterally at the site of the reported palpable lumps. No cystic or solid nodule is seen. IMPRESSION: ACR 1 negative. No change since prior studies. There is no mass identified in the left breast. There is no mammographic or sonographic evidence of mass at the site of the two reported palpable lumps, one medially and one laterally. A negative mammogram and ultrasound should not deter biopsy if there is a clinically suspicious palpable mass present. Clinical correlation and followup is recommended. Recommend followup mammogram in one year. BIRADS 1: BI-RADS/ACR category 1 mammogram. Negative Mammogram. This mammogram was interpreted with the aid of an FDA-approved computer-aided detection system. The patient states she had a clinical breast exam in 08/2019. The patient letter being requested is M2. Electronically Signed by Triston Hu MD 09/04/2019 01:18 P
== END ==
LOC: M RAD 13:22
PROVIDERS: ATTEND Internal Medicine
DX: N63.22 Unspecified lump in the left breast, upper inner quadrant (principal)
CPT/HCPCS: 76642; 77065; G0279

== ENCOUNTER → 2020-03-06 | Outpatient (REF) | payer OTHER ==
[~2020-03-06] MED LIST changes: -METF-791 PO; +METF-838 PO
== END ==
LOC: M LAB REF 09:26
PROVIDERS: ATTEND Internal Medicine
DX: B37.3 Candidiasis of vulva and vagina (principal)

== ENCOUNTER → 2020-05-27 | Outpatient (REF) | payer OTHER ==
[~2020-05-27] MED LIST changes: +AMLO1TAB24 PO; -AMLO5TAB6 PO; -ASPI81TA85 PO; +ASPI81TA86 PO
[2020-05-27 14:43] LABS: HEMOGLOBIN A1c 12.3 %
[2020-05-27 14:48] LABS: CREATININE, URINE 94.7 MG/DL; MALB URINE SIEMENS 38.6 MG/L; MAU/CREAT RATIO 40.7 MCG/MG (0.0-30.0)
[2020-05-27 14:56] LABS: ALBUMIN 4.1 GM/DL (3.2-5.2); ALT/SGPT 53 U/L (12-78); BILIRUBIN,TOTAL 0.6 MG/DL (0.2-1.0); BLOOD UREA NITROGEN 10 MG/DL (7-18); CALCIUM LEVEL 9.6 MG/DL (8.5-10.1); CARBON DIOXIDE LEVEL 28 MEQ/L (21-32); CHLORIDE LEVEL 103 MEQ/L (98-107); CHOLESTEROL LEVEL 249 MG/DL (<200); CHOLESTEROL RISK RATIO 6.384 (<5); CREATININE FOR GFR 0.85 MG/DL (0.55-1.30); GLOMERULAR FILTRATION RATE > 60.0 (>51); GLUCOSE, FASTING 293 MG/DL (70-100); HDL CHOLESTEROL 39 MG/DL (>40); LDL CHOLESTEROL 169 MG/DL (<100); NON-HDL-C 210 MG/DL; SODIUM LEVEL 138 MEQ/L (136-145); TOTAL 25(OH) VITAMIN D 27.5 NG/ML (30.0-100.0); TOTAL PROTEIN 7.9 GM/DL (6.4-8.2); TRIGLYCERIDES LEVEL 205 MG/DL (<150)
== END ==
LOC: M SFHCPLAZ 09:48
PROVIDERS: ATTEND Nurse Practitioner Adult Health
DX: E11.9 Type 2 diabetes mellitus without complications (principal); Z13.29 Encounter for screening for other suspected endocrine disorder; Z13.220 Encounter for screening for lipoid disorders; E55.9 Vitamin D deficiency, unspecified

== ENCOUNTER → 2020-09-10 | Outpatient (REF) | payer OTHER ==
[~2020-09-10] MED LIST changes: -LISI-542 PO; +LISI-898 PO
[2020-09-10 16:00] LABS: HEMOGLOBIN A1c 7.9 %
[2020-09-10 16:17] LABS: MALB URINE SIEMENS 33.6 MG/L; MAU/CREAT RATIO 25.4 MCG/MG (0.0-30.0)
[2020-09-10 16:20] LABS: ALBUMIN 4.2 GM/DL (3.2-5.2); ALT/SGPT 31 U/L (12-78); BILIRUBIN,TOTAL 0.5 MG/DL (0.2-1.0); BLOOD UREA NITROGEN 13 MG/DL (7-18); CALCIUM LEVEL 9.1 MG/DL (8.5-10.1); CARBON DIOXIDE LEVEL 29 MEQ/L (21-32); CHLORIDE LEVEL 106 MEQ/L (98-107); CREATININE FOR GFR 0.77 MG/DL (0.55-1.30); GLOMERULAR FILTRATION RATE > 60.0 (>51); GLUCOSE, FASTING 119 MG/DL (70-100); POTASSIUM SERUM 3.9 MEQ/L (3.5-5.1); SODIUM LEVEL 141 MEQ/L (136-145); TOTAL 25(OH) VITAMIN D 22.2 NG/ML (30.0-100.0); TOTAL PROTEIN 7.9 GM/DL (6.4-8.2)
== END ==
LOC: M SFHCPLAZ 13:55
PROVIDERS: ATTEND Nurse Practitioner Adult Health
DX: E11.9 Type 2 diabetes mellitus without complications (principal); E55.9 Vitamin D deficiency, unspecified

== ENCOUNTER → 2020-12-10 | Outpatient (REF) | payer OTHER ==
[2020-12-10 13:08] LABS: HEMOGLOBIN A1c 7.7 %
[2020-12-10 13:25] LABS: ALT/SGPT 31 U/L (12-78); BILIRUBIN,TOTAL 0.4 MG/DL (0.2-1.0); BLOOD UREA NITROGEN 15 MG/DL (7-18); CALCIUM LEVEL 9.3 MG/DL (8.5-10.1); CARBON DIOXIDE LEVEL 28 MEQ/L (21-32); CHLORIDE LEVEL 105 MEQ/L (98-107); CHOLESTEROL LEVEL 220 MG/DL (<200); CHOLESTEROL RISK RATIO 4.888 (<5); CREATININE FOR GFR 0.66 MG/DL (0.55-1.30); GLOMERULAR FILTRATION RATE > 60.0 (>51); GLUCOSE, FASTING 161 MG/DL (70-100); HDL CHOLESTEROL 45 MG/DL (>40); LDL CHOLESTEROL 144 MG/DL (<100); NON-HDL-C 175 MG/DL; POTASSIUM SERUM 3.9 MEQ/L (3.5-5.1); SODIUM LEVEL 140 MEQ/L (136-145); TOTAL PROTEIN 7.6 GM/DL (6.4-8.2); TRIGLYCERIDES LEVEL 154 MG/DL (<150)
[2020-12-10 13:29] LABS: TOTAL 25(OH) VITAMIN D 16.3 NG/ML (30.0-100.0)
== END ==
LOC: M SFHCPLAZ 10:31
PROVIDERS: ATTEND Nurse Practitioner Adult Health
DX: E11.9 Type 2 diabetes mellitus without complications (principal); E55.9 Vitamin D deficiency, unspecified; E78.2 Mixed hyperlipidemia

== ENCOUNTER → 2020-12-26 | Outpatient (CLI) | payer OTHER ==
--- NOTE | 2020-12-26 11:45 | REP ---
INDICATION: SPONDYLOSIS LUMBAR REGION. COMPARISON: None. TECHNIQUE: Sagittal and axial T1 and T2-weighted scans are acquired in the usual fashion with and without fat saturation. Sequences include spin echo, turbo spin-echo, and STIR imaging sequences. FINDINGS: Lumbar vertebral body heights are preserved. Alignment is normal. There is no evidence of spondylolysis or spondylolisthesis. Tip of the conus medullaris is normal in position and appearance at L2. No extra vertebral abnormality is observed. Axial and sagittal images at L1-2 and L2-3 show no abnormality. At L3-4, there is very slight disc space narrowing. No disc protrusion, spinal stenosis, or foraminal narrowing is seen. At L4-5, there is mild degenerative disc narrowing and minimal diffuse disc bulging is present. This contacts the ventral margin of the thecal sac. There is mild to moderate facet hypertrophy bilaterally at L4-5. No neural foraminal narrowing or spinal stenosis is seen. There is a small left foraminal disc bulge at L4-5. The nerve root does not appear compressed. At L5-S1 there is facet hypertrophy bilaterally. No spinal stenosis, disc protrusion, or foraminal narrowing. IMPRESSION: Degenerative disc disease at L4-5 and L5-S1 with a mild diffuse disc bulging at L4-5 including left foraminal disc bulging. Facet hypertrophy bilaterally at L4-5 and 5 1. No spinal stenosis or nerve root compression is appreciated. <Electronically signed by Elmo Doran > 12/26/20 [id number]
== END ==
LOC: M RAD 09:17
PROVIDERS: ATTEND Physician Assistant
DX: M47.896 Other spondylosis, lumbar region (principal); M51.26 Other intervertebral disc displacement, lumbar region

== ENCOUNTER → 2021-05-04 | Outpatient (CLI) | payer OTHER ==
[2021-05-04 13:41] LABS: HEMOGLOBIN A1c 9.3 %
[2021-05-04 13:53] LABS: ALBUMIN 4.2 GM/DL (3.2-5.2); ALT/SGPT 41 U/L (12-78); BILIRUBIN,TOTAL 0.3 MG/DL (0.2-1.0); BLOOD UREA NITROGEN 16 MG/DL (7-18); CALCIUM LEVEL 9.5 MG/DL (8.5-10.1); CARBON DIOXIDE LEVEL 29 MEQ/L (21-32); CHLORIDE LEVEL 103 MEQ/L (98-107); CREATININE FOR GFR 0.79 MG/DL (0.55-1.30); GLOMERULAR FILTRATION RATE > 60.0 (>51); GLUCOSE, FASTING 175 MG/DL (70-100); POTASSIUM SERUM 4.2 MEQ/L (3.5-5.1); SODIUM LEVEL 137 MEQ/L (136-145); TOTAL PROTEIN 8.1 GM/DL (6.4-8.2)
[2021-05-04 13:58] LABS: TOTAL 25(OH) VITAMIN D 24.9 NG/ML (30.0-100.0)
== END ==
LOC: M PLALAB 10:55
PROVIDERS: ATTEND Nurse Practitioner Adult Health
DX: E55.9 Vitamin D deficiency, unspecified (principal); E11.9 Type 2 diabetes mellitus without complications

== ENCOUNTER → 2021-10-05 | Outpatient (CLI) | payer OTHER ==
[~2021-10-05] MED LIST changes: -FLUC150T PO; +FLUC150T9 PO; -LISI-898 PO; +LISI5TAB11 PO
[2021-10-05 10:49] LABS: ALBUMIN 3.9 GM/DL (3.2-5.2); ALT/SGPT 38 U/L (12-78); BILIRUBIN,TOTAL 0.3 MG/DL (0.2-1.0); BLOOD UREA NITROGEN 14 MG/DL (7-18); CALCIUM LEVEL 9.2 MG/DL (8.5-10.1); CARBON DIOXIDE LEVEL 28 MEQ/L (21-32); CHLORIDE LEVEL 105 MEQ/L (98-107); CHOLESTEROL LEVEL 238 MG/DL (<200); CHOLESTEROL RISK RATIO 5.804 (<5); CREATININE FOR GFR 0.83 MG/DL (0.55-1.30); GLOMERULAR FILTRATION RATE > 60.0 (>51); GLUCOSE, FASTING 218 MG/DL (70-100); HDL CHOLESTEROL 41 MG/DL (>40); LDL CHOLESTEROL 166 MG/DL (<100); NON-HDL-C 197 MG/DL; POTASSIUM SERUM 3.9 MEQ/L (3.5-5.1); SODIUM LEVEL 139 MEQ/L (136-145); TOTAL PROTEIN 7.4 GM/DL (6.4-8.2); TRIGLYCERIDES LEVEL 153 MG/DL (<150)
[2021-10-05 10:52] LABS: TOTAL 25(OH) VITAMIN D 17.9 NG/ML (30.0-100.0); VITAMIN B12 LEVEL 702 PG/ML
[2021-10-05 10:53] LABS: FOLATE 8.3 NG/ML
[2021-10-05 12:15] LABS: HEMOGLOBIN A1c 10.3 %; MALB URINE SIEMENS 80.1 MG/L; MAU/CREAT RATIO 35.7 MCG/MG (0.0-30.0)
== END ==
LOC: M PLALAB 08:09
PROVIDERS: ATTEND Nurse Practitioner Adult Health
DX: E11.9 Type 2 diabetes mellitus without complications (principal); E55.9 Vitamin D deficiency, unspecified; D64.9 Anemia, unspecified; E78.2 Mixed hyperlipidemia

== ENCOUNTER → 2022-04-07 | Outpatient (CLI) | payer OTHER ==
[2022-04-07 11:16] LABS: ALT/SGPT 58 U/L (12-78); BILIRUBIN,TOTAL 0.4 MG/DL (0.2-1.0); BLOOD UREA NITROGEN 15 MG/DL (7-18); CALCIUM LEVEL 9.7 MG/DL (8.5-10.1); CARBON DIOXIDE LEVEL 27 MEQ/L (21-32); CHLORIDE LEVEL 105 MEQ/L (98-107); CHOLESTEROL LEVEL 282 MG/DL (<200); CREATININE FOR GFR 0.68 MG/DL (0.55-1.30); GLOMERULAR FILTRATION RATE > 60.0 (>51); GLUCOSE, FASTING 167 MG/DL (70-100); HDL CHOLESTEROL 36 MG/DL (>40); POTASSIUM SERUM 4.4 MEQ/L (3.5-5.1); SODIUM LEVEL 138 MEQ/L (136-145); TRIGLYCERIDES LEVEL 210 MG/DL (<150)
[2022-04-07 11:17] LABS: ALBUMIN 4.1 GM/DL (3.2-5.2); CHOLESTEROL RISK RATIO 7.833 (<5); LDL CHOLESTEROL 204 MG/DL (<100); NON-HDL-C 246 MG/DL; TOTAL PROTEIN 7.5 GM/DL (6.4-8.2)
[2022-04-07 11:47] LABS: TOTAL 25(OH) VITAMIN D 22.2 NG/ML (30.0-100.0)
[2022-04-07 11:51] LABS: CREATININE, URINE 51.9 MG/DL; MAU/CREAT RATIO 15.4 MCG/MG (0.0-30.0)
== END ==
LOC: M PLALAB 08:19
PROVIDERS: ATTEND Nurse Practitioner Adult Health
DX: E11.9 Type 2 diabetes mellitus without complications (principal); E55.9 Vitamin D deficiency, unspecified; E78.2 Mixed hyperlipidemia

== ENCOUNTER → 2022-04-18 | Outpatient (CLI) | payer OTHER | LOC: M WHC 08:49 | PROVIDERS: ATTEND Nurse Practitioner Adult Health | DX: Z12.31 Encounter for screening mammogram for malignant neoplasm of breast (principal) ==

== ENCOUNTER → 2022-07-07 | Outpatient (CLI) | payer OTHER ==
[2022-07-07 12:57] LABS: CREATININE, URINE 148.2 MG/DL; MAU/CREAT RATIO 16.1 MCG/MG (0.0-30.0)
[2022-07-07 12:58] LABS: ALBUMIN 4.1 G/DL (3.2-5.2); ALKALINE PHOSPHATASE 90 U/L (46-116); ALT/SGPT 26 U/L (7.0-40); AST/SGOT 19 U/L (<34); BILIRUBIN,TOTAL 0.4 MG/DL (0.3-1.2); BLOOD UREA NITROGEN 11 MG/DL (9-23); CALCIUM LEVEL 9.6 MG/DL (8.5-10.1); CARBON DIOXIDE LEVEL 28 MMOL/L (20-31); CHLORIDE LEVEL 102 MMOL/L (98-107); CHOLESTEROL LEVEL 220 MG/DL (<200); CHOLESTEROL RISK RATIO 5.23 (<5); CREATININE FOR GFR 0.63 MG/DL (0.55-1.30); GLOMERULAR FILTRATION RATE > 60.0 (>51); GLUCOSE, FASTING 257 MG/DL (60-100); LDL CHOLESTEROL 158.8 MG/DL (<100); NON-HDL-C 178 MG/DL; POTASSIUM SERUM 4.2 MMOL/L (3.5-5.1); SODIUM LEVEL 140 MMOL/L (136-145); TOTAL PROTEIN 7.4 G/DL (5.7-8.2); TRIGLYCERIDES LEVEL 96 MG/DL (<150)
[2022-07-07 13:00] LABS: TOTAL 25(OH) VITAMIN D 24.2 NG/ML (20.0-100.0)
[2022-07-07 13:49] LABS: HEMOGLOBIN A1c 9.7 % (4.0-6.0)
== END ==
LOC: M PLALAB 08:47
PROVIDERS: ATTEND Nurse Practitioner Adult Health
DX: E11.9 Type 2 diabetes mellitus without complications (principal); E78.2 Mixed hyperlipidemia; E55.9 Vitamin D deficiency, unspecified

== ENCOUNTER → 2022-10-10 | Outpatient (REF) | payer OTHER ==
[2022-10-10 13:14] LABS: CREATININE, URINE 75.7 MG/DL; MAU/CREAT RATIO 22.4 MCG/MG (0.0-30.0)
[2022-10-10 17:42] LABS: ALBUMIN 4.1 G/DL (3.2-5.2); ALKALINE PHOSPHATASE 87 U/L (46-116); ALT/SGPT 31 U/L (7.0-40); AST/SGOT 20 U/L (<34); BILIRUBIN,TOTAL 0.4 MG/DL (0.3-1.2); BLOOD UREA NITROGEN 13 MG/DL (9-23); CALCIUM LEVEL 9.4 MG/DL (8.5-10.1); CARBON DIOXIDE LEVEL 29 MMOL/L (20-31); CHLORIDE LEVEL 99 MMOL/L (98-107); CHOLESTEROL LEVEL 255 MG/DL (<200); CHOLESTEROL RISK RATIO 4.88 (<5); CREATININE FOR GFR 0.53 MG/DL (0.55-1.30); GLOMERULAR FILTRATION RATE > 60.0 (>51); GLUCOSE, FASTING 216 MG/DL (60-100); HDL CHOLESTEROL 52.2 MG/DL (>40); HEMOGLOBIN A1c 10.5 % (4.0-6.0); LDL CHOLESTEROL 171.2 MG/DL (<100); NON-HDL-C 203 MG/DL; POTASSIUM SERUM 4.2 MMOL/L (3.5-5.1); SODIUM LEVEL 137 MMOL/L (136-145); TOTAL PROTEIN 7.8 G/DL (5.7-8.2); TRIGLYCERIDES LEVEL 158 MG/DL (<150)
[2022-10-10 17:44] LABS: THYROID STIMULATING HORMONE 4.038 uIU/ML (0.55-4.78); TOTAL 25(OH) VITAMIN D 24.1 NG/ML (20.0-100.0)
== END ==
LOC: M LAB REF 12:20
PROVIDERS: ATTEND Nurse Practitioner Family
DX: E11.9 Type 2 diabetes mellitus without complications (principal); E78.5 Hyperlipidemia, unspecified; E55.9 Vitamin D deficiency, unspecified

== ENCOUNTER → 2023-06-26 | Outpatient (CLI) | payer OTHER | LOC: M WUC 14:52 | PROVIDERS: ATTEND Student in an Organized Health Care Education/Training Program | DX: M25.571 Pain in right ankle and joints of right foot (principal) ==

== ENCOUNTER → 2023-10-09 | Outpatient (CLI) | payer OTHER | LOC: M WUC 08:12 | PROVIDERS: ATTEND Physician Assistant | DX: M79.645 Pain in left finger(s) (principal) ==

== ENCOUNTER → 2023-12-22 | Outpatient (REF) | payer OTHER ==
[2023-12-22 13:22] LABS: CREATININE, URINE 260.1 MG/DL; MAU/CREAT RATIO 8.8 MCG/MG (0.0-30.0)
[2023-12-22 14:07] LABS: BASO % 0.6 % (0.0-1.0); EOS # 0.2 10^3/uL (0.0-0.5); EOS % 3.3 % (0.0-3.0); HEMATOCRIT 43.2 % (36.0-47.0); HEMOGLOBIN 14.4 g/dl (12.0-15.5); LYMPH % 29.5 % (24.0-44.0); MEAN CORPUSCULAR HEMOGLOBIN 29.3 pg (27.0-33.0); MEAN CORPUSCULAR HGB CONC 33.3 g/dl (32.0-36.5); MEAN CORPUSCULAR VOLUME 87.8 fl (80.0-96.0); MONO # 0.4 10^3/uL (0.0-0.8); MONO % 5.7 % (2.0-8.0); NEUTROPHILS # 4.2 10^3/uL (1.5-8.5); NEUTROPHILS % 60.6 % (36.0-66.0); PLATELET COUNT, AUTOMATED 320 10^3/uL (150-450); RED BLOOD COUNT 4.92 10^6/uL (4.00-5.40); WHITE BLOOD COUNT 6.9 10^3/uL (4.0-10.0)
[2023-12-22 14:10] LABS: ALBUMIN 3.8 G/DL (3.2-5.2); ALKALINE PHOSPHATASE 97 U/L (46-116); ALT/SGPT 30 U/L (7.0-40); AST/SGOT 13 U/L (<34); BILIRUBIN,TOTAL 0.5 MG/DL (0.3-1.2); BLOOD UREA NITROGEN 13 MG/DL (9-23); CARBON DIOXIDE LEVEL 27 MMOL/L (20-31); CHLORIDE LEVEL 105 MMOL/L (98-107); CHOLESTEROL LEVEL 212 MG/DL (<200); CHOLESTEROL RISK RATIO 5.07 (<5); CREATININE FOR GFR 0.63 MG/DL (0.55-1.30); GLOMERULAR FILTRATION RATE > 60.0 (>51); GLUCOSE, FASTING 203 MG/DL (60-100); HDL CHOLESTEROL 41.8 MG/DL (>40); MAGNESIUM LEVEL 1.5 MG/DL (1.8-2.4); NON-HDL-C 170.2 MG/DL; POTASSIUM SERUM 4.1 MMOL/L (3.5-5.1); SODIUM LEVEL 140 MMOL/L (136-145); TOTAL PROTEIN 6.9 G/DL (5.7-8.2); TRIGLYCERIDES LEVEL 106 MG/DL (<150)
[2023-12-22 14:11] LABS: TOTAL 25(OH) VITAMIN D 23.4 NG/ML (20.0-100.0)
[2023-12-22 14:26] LABS: HEMOGLOBIN A1c 11.1 % (4.0-6.0)
== END ==
LOC: M LAB REF 12:13
PROVIDERS: ATTEND Nurse Practitioner Family
DX: E11.9 Type 2 diabetes mellitus without complications (principal); E66.9 Obesity, unspecified; E55.9 Vitamin D deficiency, unspecified

== ENCOUNTER → 2024-05-10 | Outpatient (REF) | payer OTHER | LOC: M LAB REF 16:06 | PROVIDERS: ATTEND Physician Assistant | DX: J02.9 Acute pharyngitis, unspecified (principal) ==

== ENCOUNTER → 2024-05-24 | Outpatient (CLI) | payer OTHER | LOC: M WUC 12:18 | PROVIDERS: ATTEND Physician Assistant | DX: M79.672 Pain in left foot (principal) ==

== ENCOUNTER 2024-06-04 13:39 | Emergency (ER) | payer OTHER ==
[~2024-06-04] VITALS: Ht 157.5 cm; Wt 86.3 kg
[2024-06-04] MEDS: BENZONATATE 100MG CAPSULE PO ONE (16:28)
[2024-06-04 16:58] VITALS: BP 187/97; TEMP 96.9; O2SAT 97
[2024-06-04] MEDS ORDERED: BENZ200C70 PO (17:12)
== END 2024-06-04 17:24 | disposition home or self-care (01) ==
LOC: M ED 13:39
DX: J20.9 Acute bronchitis, unspecified (principal); E11.9 Type 2 diabetes mellitus without complications; I10 Essential (primary) hypertension; R51.9 Headache, unspecified; G56.03 Carpal tunnel syndrome, bilateral upper limbs; Z88.2 Allergy status to sulfonamides; Z79.899 Other long term (current) drug therapy

== ENCOUNTER → 2024-08-30 | Outpatient (REF) | payer OTHER ==
[~2024-08-30] MED LIST changes: +BENZ200C70 PO; +NYST1POW3 TOP; -NYST1POW9 TOP
[2024-08-30 14:09] LABS: HEMOGLOBIN A1c 13.2 % (4.0-6.0)
[2024-08-30 14:29] LABS: ALBUMIN 4.1 G/DL (3.2-5.2); ALKALINE PHOSPHATASE 102 U/L (35-104); ALT/SGPT 36 U/L (7.0-40); AST/SGOT 18 U/L (<34); BILIRUBIN,DIRECT < 0.1 MG/DL (<0.4); BILIRUBIN,TOTAL 0.3 MG/DL (0.3-1.2); BLOOD UREA NITROGEN 13 MG/DL (9-23); CALCIUM LEVEL 9.5 MG/DL (8.5-10.1); CARBON DIOXIDE LEVEL 30 MMOL/L (20-31); CHLORIDE LEVEL 99 MMOL/L (98-107); CHOLESTEROL LEVEL 293 MG/DL (<200); CHOLESTEROL RISK RATIO 7.61 (<5); GLOMERULAR FILTRATION RATE > 60.0 (>51); GLUCOSE, FASTING 329 MG/DL (60-100); HDL CHOLESTEROL 38.5 MG/DL (>40); LDL CHOLESTEROL 184.9 MG/DL (<100); NON-HDL-C 254.5 MG/DL; POTASSIUM SERUM 3.7 MMOL/L (3.5-5.1); SODIUM LEVEL 141 MMOL/L (136-145); THYROID STIMULATING HORMONE 5.608 uIU/ML (0.55-4.78); TOTAL PROTEIN 7.6 G/DL (5.7-8.2); TRIGLYCERIDES LEVEL 348 MG/DL (<150)
== END ==
LOC: M LAB REF 13:07
PROVIDERS: ATTEND Nurse Practitioner Family
DX: E11.9 Type 2 diabetes mellitus without complications (principal); E78.00 Pure hypercholesterolemia, unspecified; R89.1 Abnormal level of hormones in specimens from other organs, systems and tissues; I10 Essential (primary) hypertension

== ENCOUNTER → 2024-09-18 | Outpatient (CLI) | payer OTHER | LOC: M WUC 11:46 | PROVIDERS: ATTEND Student in an Organized Health Care Education/Training Program | DX: M25.532 Pain in left wrist (principal) ==

== ENCOUNTER → 2024-09-25 | Outpatient (CLI) | payer OTHER | LOC: M RAD 09:45 | PROVIDERS: ATTEND Nurse Practitioner Family | DX: M25.532 Pain in left wrist (principal) ==

== ENCOUNTER → 2024-11-15 | Outpatient (REF) | payer OTHER ==
[2024-11-15 17:33] LABS: HEMOGLOBIN A1c 13.2 % (4.0-6.0)
[2024-11-15 17:34] LABS: THYROID STIMULATING HORMONE 2.925 uIU/ML (0.55-4.78)
[2024-11-15 17:37] LABS: THYROID PEROXIDASE ANTIBODY > 1300.0 U/ML (<60.0)
== END ==
LOC: M LAB REF 16:39
PROVIDERS: ATTEND Nurse Practitioner Family
DX: E11.9 Type 2 diabetes mellitus without complications (principal); E03.9 Hypothyroidism, unspecified

== ENCOUNTER 2025-03-11 18:31 | Emergency (ER) | payer OTHER ==
[~2025-03-11] VITALS: Ht 157.5 cm; Wt 82.6 kg
[2025-03-11] MEDS ORDERED: DOXY-441 PO (19:54)
[2025-03-11 19:59] VITALS: BP 137/77; TEMP 97.5; O2SAT 97
[2025-03-11] MEDS: DOXYCYCLINE HYCLATE 100 MG TABLET PO ONE (20:00)
== END 2025-03-11 20:18 | disposition home or self-care (01) ==
LOC: M ED 18:31
DX: L03.115 Cellulitis of right lower limb (principal); E11.9 Type 2 diabetes mellitus without complications; I10 Essential (primary) hypertension; R51.9 Headache, unspecified; E03.9 Hypothyroidism, unspecified; K21.9 Gastro-esophageal reflux disease without esophagitis; Z88.2 Allergy status to sulfonamides; Z79.899 Other long term (current) drug therapy

== ENCOUNTER 2025-04-06 13:52 | Emergency (ER) | payer OTHER ==
[~2025-04-06] VITALS: Ht 154.9 cm; Wt 82.0 kg
[~2025-04-06 13:52] MED LIST changes: +DOXY-441 PO; -IBUP-1022 PO; +IBUP600T42 PO
[2025-04-06] MEDS ORDERED: MEDR4PAK PO (18:04)
[2025-04-06] MEDS ORDERED: METH-1165 PO (18:04)
[2025-04-06] MEDS: KETOROLAC 30 MG/ML 1 ML VIAL IM ONE (18:08)
[2025-04-06] MEDS: ACETAMINOPHEN 500 MG TAB PO ONE (18:09)
[2025-04-06 18:11] VITALS: BP 190/96; TEMP 97.7; O2SAT 98
== END 2025-04-06 18:15 | disposition home or self-care (01) ==
LOC: M ED 13:52
DX: M54.41 Lumbago with sciatica, right side (principal); M25.551 Pain in right hip; G56.03 Carpal tunnel syndrome, bilateral upper limbs; Z88.2 Allergy status to sulfonamides; Z79.899 Other long term (current) drug therapy
CPT/HCPCS: 73502; 96372; 99283; J1885

== ENCOUNTER → 2025-04-25 | Outpatient (REF) | payer OTHER ==
[~2025-04-25] MED LIST changes: +MEDR4PAK PO; +METH-1165 PO
[2025-04-25 19:05] LABS: CREATININE, URINE 56.5 MG/DL; MALB URINE SIEMENS 5.0 MG/L; MAU/CREAT RATIO 8.8 MCG/MG (0.0-30.0)
== END ==
LOC: M LAB REF 16:26
PROVIDERS: ATTEND Nurse Practitioner Family
DX: E11.9 Type 2 diabetes mellitus without complications (principal)

== ENCOUNTER → 2025-05-09 | Outpatient (REF) | payer OTHER ==
[2025-05-09 16:40] LABS: CHOLESTEROL LEVEL 292 MG/DL (<200); CHOLESTEROL RISK RATIO 6.36 (<5); LDL CHOLESTEROL 207.1 MG/DL (<100); NON-HDL-C 246.1 MG/DL; TRIGLYCERIDES LEVEL 195 MG/DL (<150)
[2025-05-09 17:37] LABS: ESTIMATED AVERAGE GLUCOSE 280.0 MG/DL (60-110)
[2025-05-09 18:23] LABS: HIV 1&2 SCREEN NEGATIVE (NEGATIVE)
[2025-05-09 18:31] LABS: HEPATITIS C VIRUS ABY INDEX < 0.02 INDEX (<0.8)
== END ==
LOC: M LAB REF 16:12
PROVIDERS: ATTEND Nurse Practitioner Family
DX: E11.9 Type 2 diabetes mellitus without complications (principal); E03.9 Hypothyroidism, unspecified; E78.00 Pure hypercholesterolemia, unspecified; Z11.9 Encounter for screening for infectious and parasitic diseases, unspecified